=== PATIENT | female | born 1980 | race Caucasian/White ===

== ENCOUNTER 2025-01-15 07:20 | Emergency (ER) | payer OTHER, SELFPAY ==
--- OUTSIDE RECORDS SUMMARY | 2024-12-01 15:40 | XMS_ITS | Encounter Summary ---
Author Organization [employer] Address [address] [place] [address] Care Team Providers Care Environmental Scientist Name Role Phone Tresa Diaz SHEARING SHED HAND, TALENT ACQUISITION PROJECT MANAGER Primary Care Provider + Reason for Visit * Reason Comments Vaginal Problems Encounter Details Date Type Department Care Team (Late st Contact Info) Description 12/01/2024 4:40 PM CDT Office Visit [place] [address] [facility] [address] [place] [address] [place] [address] [place], [place] [phone] Genital herpes simplex, unspecified site (HRC) Social History Tobacco Use Types Packs/Day Years Used Date Smoking Tobacco: Never Passive Smoke Exposure: Never Smokeless Tobacco: Never Alcohol Use Standard Drinks/Week Comments Not Currently 2 (1 standard drink = 0.6 oz pur e alcohol) AUDIT-C Answer Date Recorded Q1: How often do you have a drink containing alc ohol? Never 01/25/2020 Average Number of Drinks Not on file 020 Frequency of Binge Drinking Not on file 01/12 PHQ-2 Answer Date Recorded PHQ-2 Score 1 11/23/2024 Hunger Vital Sign Answer Date Recorded Within the past 12 months, y ou worried that your food would run out before you got the money to buy more. Never true 11/24/19 25 Within the past 12 months, t he food you bought just didn't last and you didn't have money to get more. Never true 11/23/2024 PRAPARE - Transportation Answer Date Re corded In the past 12 months, has l ack of transportation kept you from medical appointments or from getting medications? No 11/12 In the past 12 months, has l ack of transportation kept you from meetings, work, or from getting things needed for daily living? No 11/23/2024 Housing Stability Vital Sign Answer Michael e Recorded In the last 12 months, was t here a time when you were not able to pay the mortgage or rent on time? No 11/23/2024 Number of Times Moved in the Last Year Not on fi le 11/23/2024 At any time in the past 12 m [facility], were you homeless or living in a group home (including now)? No 11/23/2024 Financial Resource Strain Answer Date R ecorded Is it hard for you to pay fo r the very basics like food, housing, medical care or heating? No 07/25/2023 Food Insecurity Answer Date Recorded Does your food run out before you have the money to buy more? No 07/25/2023 Transportation Needs Answer Date Record ed Does a lack of transportatio n keep you from your medical appointments or from getting your medications? No 024 Comments No Sex and Gender Information Value Date Recorded Sex Assigned at Female 01/06/2022 6:21 PM CDT Legal Sex Female 4:56 AM CDT Gender Identity Female 01/06/2022 6:21 PM CDT Sexual Orientation Straight 01/06/2022 6: 21 PM CDT Occupation Industry Job Start Date Job End Date Senior [employer] Not on file Not on file No t on file documented as of this encounter Last Filed Vital Signs Vital Sign Reading Time Taken Comments Blood Pressure 118/75 12/01/2024 4:07 PM CDT Pulse 73 12/01/2024 4:07 PM CDT Temperature 37.1 C (98.8 F) 12/01/2024 4:07 PM CDT Respiratory Rate 16 12/01/2024 4:07 PM CDT Oxygen Saturation 99% 12/01/2024 4:07 PM CDT Inhaled Oxygen Concentration - - Weight - - Height - - Body Mass Index - - documented in this encounter Progress Notes * Sean Fernando MD - 12/01/2024 4:40 PM CDT Patient presents with concerns for for new vaginal lesion. 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 Patient requests an excuse letter for work/school: No Past Medical History[1] Asthma, anxiety, binge eating disorder, ADHD, bipolar disorder, depression, obesity, picky, historypsoriasis. Subject 43 years old female presented today to clinic she stated that is she had herpes gently tell is develop week of November she was treated patient stated that is got better, finish her antiviral medication, lost day she started to have a lot of pain in the vaginal introduces inside that is he think her herpes again flared up 1st herpes attack according to the patient was in November. She deny any fever and chills but she deny have pain and discomfort a lot. Reviewed the system above all other negative Past medical history also reviewed as above Objective BP 118/75 (BP Location: Right Arm, BP Cuff Size: Regular - Long) Pulse 73 Temp 37.1 ??C (98.8 ??F) (Tympanic) Resp 16 LMP 07/10/2023 SpO2 99% Vital signs stable alert oriented she does not seems to be distress she is here with her male partner. HEENT neck lung cardiovascular she deny any problem eye that is she deny problem Concern is genital discussed with the patient option we can not treat her for herpes flare up, we can not check to see if is additional symptom or any other lesion going on she agree. She also complained about shooting pain in her buttock area that is going down the dorsal side of her leg With the help of the nurse just see we did her physical pelvic vaginal exam External when he genital area there is there is no blister, no open skin lesion no lumps between labia majora labia minora again I do not see lesion In the labia minora on the dorsal side of the vaginal area of the vaginal bruises the soft tissue is swollen tender but I do not see ulcer at this time. Assessment Herpes With most likely flare up Plan Medication option discussed with the patient she agree I give him Valtrex cousin mg b.i.d. for 7 days for flare up worse additional symptom concern question back to the clinic otherwise follow-up with the primary doctor and information about herpes genitalis she got it last time. [1] Past Medical History: Diagnosis Date Anxiety (HRC) 11/2001 Asthma (HRC) 10/17/2012 Asthma, exercise induced (HRC) 10/17/2012 Attention deficit disorder (ADD) without hyperactivity 11/30/2016 Binge eating disorder 11/30/2016 Bipolar disorder, unspecified (HRC) Depression 11/2001 LGSIL on Pap smear of cervix Obesity (HRC) BMI technically obese entire life Phi lucio has done therapy for this without improvement Psoriasis documented in this encounter Nursing Notes * Candelaria Tom RN - 12/01/2024 4:40 PM CDT Patient presents with concerns for for new vaginal lesion. 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 Patient requests an excuse letter for work/school: No documented in this encounter Plan of Treatment Not on file documented as of this encounter Visit Diagnoses Diagnosis Genital herpes simplex, unspecified site (HRC) documented in this encounter Care Teams Environmental Scientist Relationship Specialty Start Date End Date Tresa Diaz, NAY, TALENT ACQUISITION PROJECT MANAGER [address] [place] [address] PCP - General Nurse Practitioner 05/18/24 documented as of this encounter
--- OUTSIDE RECORDS SUMMARY | 2024-12-05 07:00 | XMS_ITS | Encounter Summary ---
Author Organization [employer] Address [address] [place] [address] Care Team Providers Care Brazer Production Line Name Role Phone Tresa Diaz YARDAGE CALLER, HIV COUNSELOR Primary Care Provider + Reason for Visit * Reason Comments Dysuria Encounter Details Date Type Department Care Team (Late st Contact Info) Description 12/05/2024 8:00 AM CDT Office Visit [place] [address] [facility] [address] [place] [address] Mick Simental, NAY, HIV COUNSELOR [address] [place], [place] [id number] Dysuria; Urinary tract infection without hematuria, site unspecified Social History Tobacco Use Types Packs/Day Years [...] any time in the past 12 m [facility], were you homeless or living in a penitentiary (including now)? No 11/23/2024 Financial Resource Strain [...] Job Start Date Job End Date Senior [employer] Not on file Not on file No t on file documented as of this encounter Last Filed Vital Signs Vital Sign Reading Time Taken Comments Blood Pressure 109/61 12/05/2024 8:04 AM CDT Pulse 88 12/05/2024 8:04 AM CDT Temperature 36.4 C (97.6 F) 12/05/2024 8:04 AM CDT Respiratory Rate 20 12/05/2024 8:04 AM CDT Oxygen Saturation 100% 12/05/2024 8:04 AM CDT Inhaled Oxygen Concentration - - Weight - - Height - - Body Mass Index - - documented in this encounter Patient Instructions * Attachments The following attachments cannot be sent through Care Everywhere. * UTI (Urinary Tract Infection): Female (Tuvaluan) documented in this encounter Progress Notes * Mick Simental, YARDAGE CALLER, HIV COUNSELOR - 12/05/2024 8:00 AM CDT Patient ID. Vinita Solis Date of : 1980 HPI: The patient is a 43 y.o. female who presents with concern for possible UTI. She developed urgency and burning yesterday. He has using creams for a herpes outbreak. She believes this may have caused aUTI therefore presents today for evaluation. No back pain. No fevers. No vomiting. No other concerns or complaints. Past Medical, Surgical and Social History reviewed on EMR. Medications reviewed on EMR. Allergies: No Known Allergies Review of Systems: All other systems negative unless noted in HPI PHYSICAL EXAM: Blood pressure 109/61, pulse 88, temperature 36.4 ??C (97.6 ??F), temperature source Oral, resp. rate 20, last menstrual period 07/10/2023, SpO2 100%, not currently . General: Alert, No obvious discomfort, well kept Eyes: No scleral icterus or conjunctival injection ENT: Moist mucus membranes, Normal voice Resp: No increased work of breathing, Good air movement CV: Normal rate GI: Abdomen soft and non-distended. Normoactive BS. Mild suprapubic tenderness. No CVA tenderness Skin: Warm, dry. No rashes or petechiae Musculoskeletal: Ambulatory without difficulty, Normal gross ROM Neuro: Alert and oriented to person/place/time, normal sensation Psychiatric: Normal affect, cooperative, good eye contact LABS: Results for orders placed or performed in visit on 12/05/24 Urinalysis Routine, Micro/Culture if Pos: Clean Catch Specimen: Clean Catch; Urine Result Value Ref Range Urine Microscopic Evaluation Reflex Order Comment Urinalysis results meet criteria for reflex, urine microscopic evaluation performed. Color Yellow Clarity Clear Clear Specific [place] 1.020 1.005 - 1.030 pH 6.0 5.0 - 8.0 Protein Trace Neg/Trace mg/dL Glucose Negative Negative mg/dL Ketones Negative Negative mg/dL Urobilinogen 0.2 <2.0 EU/dL Bilirubin Negative Negative Blood Small (A) Neg/Trace Nitrite Positive (A) Negative Leukocyte Esterase Moderate (A) Negative Source Clean Catch Urine Microscopic Evaluation: Clean Catch Specimen: Clean Catch; Urine Result Value Ref Range Urine Culture Comment Urinalysis results meet criteria for reflex, culture performed. Red Blood Cells 0-3 0 - 3 /HPF White Blood Cells 21-50 (A) 0 - 5 /HPF Bacteria Few (A) None Seen /HPF Squamous Epithelial Cells Few None Seen, Occasional, Few /HPF Mucus Present (A) None Seen /HPF White Blood Cell Clumps Present (A) None Seen /HPF IMAGING: No results found. Orders Placed This Encounter Medications QUEtiapine (SEROQUEL) 25 MG tablet Sig: Take by mouth. ASSESSMENT: Patient was seen here for symptoms of dysuria, frequency, and/or urgency. UA consistent with UTI. Patient had no CVA tenderness, no shaking chills, no new sexual partners and has a benign abdominal exam on initial presentation and prior to discharge. Unlikely to represent pyelonephritis or renal stone. Patient was prescribed Keflex and was instructed to return to the Emergency Department for increasing pain, fever, chills, back pain or not being able to keep medication down. Diagnosis and Associated Orders ICD-10-CM 1. Dysuria R30.0 Urinalysis Routine, Micro/Culture if Pos: Clean Catch Urine Microscopic Evaluation: Clean Catch Urine Culture PLAN: New Prescriptions No medications on file Take medications as prescribed and drink plenty of fluids. Follow up with primary care physician in3 - 5 days or sooner if symptoms worsen, may return here or go to the ER if worsening symptoms, fevers, vomiting,abdominal or flank pain or any other concerns. We will send your urine to culture if the bacteria is resistant to the med's we put you on we will call you and change your medications. documented in this encounter Nursing Notes * Riley Lewis, RN - 12/05/2024 8:00 AM CDT Pt states she has herpes in vaginal area and thinks the creams she's been using has caused a uti. C/o urgency and burning with urination since yesterday. Patient requests an excuse letter for work/school: Yes documented in this encounter Plan of Treatment Not on file documented as of this encounter Procedures Procedure Name Priority Date/Time Associated Diagnosis Comments URINE CULTURE STAT 12/05/2024 7:59 AM CDT Dysuria URINALYSIS ROUTINE, MICRO/CULTURE IF POS STAT 12/05/2024 7:59 AM CDT Dysuria UA MICRO STAT 12/05/2024 7:59 AM CDT Dysuria documented in this encounter Results * (ABNORMAL) Urine Culture (12/05/2024 7:59 AM CDT) Urine Culture Growth(A) 12/07/2024 8:38 AM T [facility] Urine Culture 10,000 - 50,000 CFU/mL Escherichia coli 12/07/2024 8:38 AM T [facility] Comment:This is an edited re sult. Previous organism was Gram Negative Bacilli on 12/06/2024 at 0705 CDT. Urine URINE SPECIMEN COLLECTION, CLEAN CATCH / Unknown Non-blood Collection / Unknown 12/05/2024 7:59 AM CDT 12/05/2024 8:24 AM CDT Narrative Organism Antibiotic Method Susceptibility Escherichia coli Ampicillin/Sulbactam >16 mcg/mL: Resistant Escherichia coli Cefazolin >16 mcg/mL: Resistant Escherichia coli Cefazolin (Urine) Resistant Comment:Predicts josr eptibility to most oral cephalosporins for treatment of infections from a urine source. Escherichia coli Ceftriaxone <=1 mcg/mL: Susceptible Escherichia coli Ciprofloxacin <=0.25 mcg/mL: Susceptible Escherichia coli Levofloxacin <=0.5 mcg/mL: Susceptible Escherichia coli Trimethoprim/Sulfamethoxazole <=0.5 mcg/mL: Susceptible Escherichia coli Nitrofurantoin <=16 mcg/mL: Susceptible Escherichia coli Ampicillin >16 mcg/mL: Resistant Escherichia coli Cefoxitin >16 mcg/mL: Resistant Escherichia coli Gentamicin <=2 mcg/mL: Susceptible Escherichia coli Cefotetan Escherichia coli Cefuroxime >16 mcg/mL: Resistant Escherichia coli Minocycline Escherichia coli Amoxicillin/Clavulanic Acid >16 mcg/mL: Resistant Jack Miguel [facility]_1 Final Result [facility] CLIA: [id number] [address] [place] [address], [facility] * (ABNORMAL) Urine Microscopic Evaluation: Clean Catch (12/05/2024 7:59 AM CDT) Urine Culture Comment Urinalysis results meet criteria for reflex, culture performed. 12/05/2024 8:24 AM CDT [facility] Red Blood Cells 0-3 0 - 3 /HPF 12/05/2024 8:24 AM CDT [facility] White Blood Cells 21-50(A) 0 - 5 /HPF 12/05/2024 8:24 AM CDT [facility] Bacteria Few(A) None Seen /HPF 12/05/2024 8:24 AM CDT [facility] Squamous Epithelial Cells Few None Seen, Occasiona l, Few /HPF 12/05/2024 8:24 AM T [facility] Mucus Present(A) None Seen /HPF 12/05/2024 8:24 AM CDT [facility] White Blood Cell Clumps Present(A) None Seen /HPF 12/05/2024 8:24 AM T [facility] Urine URINE SPECIMEN COLLECTION, CLEAN CATCH / Unknown Non-blood Collection / Unknown 12/05/2024 7:59 AM CDT 12/05/2024 8:16 AM CDT Jack Miguel [facility] LAB_1 Final Result [facility] CLIA: [id number] [place] [address], [facility] * (ABNORMAL) Urinalysis Routine, Micro/Culture if Pos: Clean Catch (12/05/2024 7:59 AM CDT) Urine Microscopic Evaluation Reflex Order Comment Urinalysis results meet criteria for reflex, urine microscopic evaluation performed. 12/05/2024 8:24 AM [facility] Color Yellow 12/05/2024 8:24 AM [facility] Clarity Clear Clear 12/05/2024 8:24 AM [facility] Specific [place] 1.020 1.005 - 1.030 12/05/2024 8:24 AM [facility] pH 6.0 5.0 - 8.0 12/05/2024 8:24 AM [facility] Protein Trace Neg/Trace mg/dL 12/05/2024 8:24 AM [facility] Glucose Negative Negative mg/dL 12/05/2024 8:24 AM [facility] Ketones Negative Negative mg/dL 12/05/2024 8:24 AM [facility] Urobilinogen 0.2 <2.0 EU/dL 12/05/2024 8:24 AM [facility] Bilirubin Negative Negative 12/05/2024 8:24 AM [facility] Blood Small(A) Neg/Trace 12/05/2024 8:24 AM [facility] Nitrite Positive(A) Negative 12/05/2024 8:24 AM [facility] Leukocyte Esterase Moderate(A) Negative 12/05/2024 8:24 AM [facility] Source Clean Catch 12/05/2024 8:24 AM [facility] Urine URINE SPECIMEN COLLECTION, CLEAN CATCH / Unknown Non-blood Collection / Unknown 12/05/2024 7:59 AM CDT 12/05/2024 8:16 AM T [facility]_1 Final Result [facility] CLIA: [id number] [place] [address], [facility] documented in this encounter Visit Diagnoses Diagnosis Dysuria Urinary tract infection without hematuria, site unspecified documented in this encounter Care Teams [employer]er Production [employer] Relationship Specialty Start Date End Date Tresa Diaz, YARDAGE CALLER, HIV COUNSELOR [address] [place] [address] PCP - General Nurse Practitioner 05/18/24 documented as of this encounter
--- OUTSIDE RECORDS SUMMARY | 2024-12-26 09:00 | XMS_ITS | Encounter Summary ---
Author Organization [employer] Address [address] [facility] [place] [address] Care Team Providers Care Assembler Tractor Name Role Phone Tresa Diaz GLOVE SEWER, CYLINDER DEVALVER Primary Care Provider + Reason for Visit * Reason Comments Follow-up Encounter Details Date Type Department Care Team (Late st Contact Info) Description 12/26/2024 10:00 AM CDT Office Visit [facility] OB-FILM PRODUCER [address] [address] Lorena Smith MD [address] [place], [place] [phone] HSV (herpes simplex virus) anogenital infection (Primary Dx) Social History Tobacco Use Types Packs/Day Years [...] any time in the past 12 m [facility], were you homeless or living in a senior care (including now)? 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 , here for f/u primary HSV 2. Had terrible HSV 2 symptoms, sacral radiculopathy. Required second round of Valtrex. Ultimately also had an unrelated throat infection, a UTI, yeast vaginitis. Was ill for a month. Now feeling completely better. No pain w/ intercourse. Partner was unaware of his prior hx HSV.Vinita and her partner really talked things through. She reports that her mental health is good. Medications - Previous to this Encounter[1] No Known Allergies OBJECTIVE: Filed Vitals: 12/26/24 1002 BP: 138/78 Pulse: 86 Weight: 162 lb (73.5 kg) Estimated body mass index is 28.25 kg/m?? as calculated from the following: Height as of 05/18/24: 5' 3.5 (1.613 m). Weight as of this encounter: 162 lb (73.5 kg). Alert, normal affect, no distress ASSESSMENT: ICD-10-CM 1. HSV (herpes simplex virus) anogenital infection A60.9 valACYclovir (VALTREX) 1 g tablet PLAN: We reviewed the diagnosis and risk of recurrent outbreaks. We discussed the pros and cons of episodic versus daily suppressive treatment. Given the severity of this primary outbreak, patient elects for daily suppressive therapy with Valtrex 1 g daily. If she does have breakthrough symptoms, she will increase her dosing to 1 g twice daily for 3 days. Plan daily suppressive therapy for 6-12 months then reassess. Patient may follow up with me or with her primary care physician for refills. MDM [1] Outpatient Medications Prior to Visit Medication Sig Dispense Refill budesonide-formoterol (SYMBICORT) 160-4.5 MCG/ACT inhaler Take 1-2 puffs twice a day. May take an additional 1 puff every 4 hours as needed for wheezing or shortness of breath. 1 Each 11 clonazePAM (KLONOPIN) 0.5 MG tablet TAKE 1/2 TABLET BY MOUTH IN THE MORNING PLAS 1/2 TABLET DAILY NEEDED FOR ANXIET/PANIC 30 Tablet 0 dexAMETHasone (DECADRON) 4 MG tablet Two tablets today, one tablet tomorrow, one tablet the following day. (Patient not taking: Reported on 12/26/2024) 4 Tablet 0 escitalopram (LEXAPRO) 10 MG tablet Take 1 Tablet (10 mg) by mouth daily. fluconazole (DIFLUCAN) 150 MG tablet Take 1 tablet by mouth for 1 dose. Repeat after 1 week if needed. (Patient not taking: Reported on 12/26/2024) 2 Tablet 0 lamoTRIgine (LAMICTAL) 200 MG tablet Take 1 Tablet by mouth two times a day. Change to do 90 day rx, this replaces previous Rx (Patient taking differently: Take 1 Tablet (200 mg) by mouth two times aday. Change to do 90 day rx, this replaces previous Rx Doing 1 tab AM, 0.5 tab PM) 180 Tablet 3 lidocaine (XYLOCAINE) 2 % jelly Apply to affected area on perineum 3x/day as needed for pain. Indications: Anesthesia to a Specific Part of the Body (Patient not taking: Reported on 12/26/2024) 30 mL1 lisdexamfetamine (VYVANSE) 30 MG capsule Take 1 Capsule (30 mg) by mouth every morning. QUEtiapine (SEROQUEL) 25 MG tablet Take by mouth. topiramate (TOPAMAX) 100 MG tablet Take 1.5 Tablets by mouth two times a day. 270 Tablet 1 traZODone (DESYREL) 100 MG tablet Take 2 Tablets by mouth daily at bedtime. 180 Tablet 0 No facility-administered medications prior to visit. documented in this encounter Plan of Treatment Not on file documented as of this encounter Visit Diagnoses Diagnosis HSV (herpes simplex virus) anogenital infection- Primary Herpes simplex without mention of complication documented in this encounter Care Teams Assembler Tractor Relationship Specialty Start Date End Date Tresa Diaz, NAY, CYLINDER DEVALVER [address] [place] [address] PCP - General Nurse Practitioner 05/18/24 documented as of this encounter
--- OUTSIDE RECORDS SUMMARY | 2024-12-26 09:30 | XMS_ITS | Encounter Summary ---
Author Organization [facility] Address [address] [place] [address] Care Team Providers Care Pension Administrator Name Role Phone Tresa Diaz APRN, SUPERVISOR COMMUNICATIONS AND SIGNALS Primary Care Provider + Reason for Visit * Reason Comments QUESTIONS, GENERAL Entered automaticall y based on patient selection in ividence. Encounter Details Date Type Department Care Team (Late st Contact Info) Description 12/26/2024 10:30 AM CDT E-Visit [place] [address] [facility] [address] [place] [phone] Tresa Diaz APRN, SUPERVISOR COMMUNICATIONS AND SIGNALS [address] [place] [address] Chief Comp: QUESTIONS, GENERAL Social History Tobacco Use Types Packs/Day Years [...] were you homeless or living in a prison (including now)? 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
--- OUTSIDE RECORDS SUMMARY | 2025-01-03 06:40 | XMS_ITS | Encounter Summary ---
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 Not on file No t on file documented as of this encounter Plan of Treatment Not on file documented as of this encounter Procedures Procedure Name Priority Date/Time Associated Diagnosis Comments LIPID PANEL & DIRECT LDL (IF NEEDED) Routine 01/03/2025 7:47 AM CDT Screening cholesterol level HGB A1C Routine 01/03/2025 7:47 AM CDT Screening for diabetes mellitus documented in this encounter Results * Hgb A1C (01/03/2025 7:47 AM CDT) Hemoglobin A1C 4.2 <=5.6 % 01/03/2025 2:13 PM CDT [facility] Estimated Average Glucose (Calc) 74 < 117 mg/dL 01/03/2025 2:13 PM T [facility] Comment:Estimated average gl ucose (eAG) converts A1c into glucose units (mg/dL) and estimates average glucose over the past approximately 3 months. The eAG reference interval (<117 mg/dL) corresponds to an A1c of <5.7%. Blood Venipuncture / Unknown 01/03/2025 7:47 AM CDT 01/03/2025 7:47 AM CDT Tresa Diaz APRN [employer] LAB_1 Final Re shaniqua [facility] CLIA: [id number] [address] * (ABNORMAL) Lipid Panel & Direct LDL (if Needed) (01/03/2025 7:47 AM CDT) [facility] Cholesterol 208(H) 0 - 199 mg/dL 01/03/2025 10:57 AM [facility] Triglyceride 160(H) <=149 mg/dL 01/03/2025 10:57 AM [facility] HDL Cholesterol 42 >=40 mg/dL 10:57 AM [facility] LDL, Calculated 134(H) <130 mg/dL 10:57 AM [facility] Non HDL Chol, Calculated 166(H) <=159 mg/dL 01/03/2025 10:57 AM [facility] Cholesterol/HDL Ratio 5.0 <=5.0 01/03/2025 10:57 AM [facility] Hours Fasting 1.0 8 - 12 Hours 01/03/2025 10:57 AM [facility] Blood Venipuncture / Unknown 01/03/2025 7:47 AM CDT 01/03/2025 7:47 AM CDT Tresa Diaz APRN, [employer] LAB_1 Final Re sult [facility] CLIA: [id number] [place] [address], [facility] CLIA: [id number] [address] [place] [address] [[email or web address]] documented in this encounter Visit Diagnoses Diagnosis Screening cholesterol level Screening for lipoid disorders Screening for diabetes mellitus documented in this encounter Care Teams Personal Financial Representative Relationship Specialty Start Date End Date Tresa Diaz APRN, [employer] [address] [place], [place] [id number] PCP - General Nurse Practitioner 05/18/24 documented as of this encounter
--- OUTSIDE RECORDS SUMMARY | 2025-01-15 07:22 | XMS_ITS | Clinical Summary ---
Author Organization [facility] Address [address] [place] [address] Care Team Providers Care Marketing Associate Name Role Phone [facility] Pro vider Sybil Merrill MD Unavailable Unavailable Allergies No known active allergies Medications lisdexamfetamine (VYVANSE) 30 MG capsule Take 30 mg by mouth daily Active escitalopram (LEXAPRO) 20 MG tablet Take 30 mg by mouth daily Active norgestrel-ethin yl estradiol (LO/OVRAL) 0.3-30 MG-MCG per tablet Take 1 tablet by mouth daily Active lamoTRIgine (LAMICTAL) 150 MG tablet Take 300 mg by mouth daily Active traZODone (DESYREL) 150 MG tablet Take 150 mg by mouth At Bedtime Active order for DMEIndications:C losed fracture of right ankle, initial encounter Equipment being ordered: Other: Roll about Treatment Diagnosis: Right bimalleolar ankle fracture open reduction and internal fixation Will need for total of 3 months (until June 11, 2019) 1 Units 9 Active senna (SENOKOT) 8.6 MG tabletIndication s:Closed fracture of right ankle, initial encounter Take 1 tablet by mouth daily as needed for constipation 40 tablet 9 Active oxyCODONE (ROXICODONE) 5 MG tabletIndication s:Trimalleolar fracture of right ankle, closed, initial encounter Take 1 tablet (5 mg) by mouth every 6 hours as needed for moderate to severe pain 20 tablet 9 Active senna-docusate (SENOKOT-S/PERIC OLACE) 8.6-50 MG tabletIndication s:Trimalleolar fracture of right ankle, closed, initial encounter Take 1 tablet by mouth 2 times daily as needed for constipation 30 tablet 9 Active lisdexamfetamine (VYVANSE) 30 MG capsule Take 30 mg by mouth every morning. Active traZODone (DESYREL) 100 MG tablet Take 200 mg by mouth at bedtime. Active escitalopram (LEXAPRO) 10 MG tablet Take 10 mg by mouth daily. Active lamoTRIgine (LAMICTAL) 200 MG tablet Take 200 mg by mouth 2 times daily. Active ferrous sulfate (FEROSUL) 325 (65 Fe) MG tablet Take 325 mg by mouth daily (with breakfast). Active clonazePAM (KLONOPIN) 0.5 MG tablet Take 0.25 mg by mouth 2 times daily as needed for anxiety. Active ibuprofen (ADVIL/MOTRIN) 200 MG tabletIndication s:S/P hysterectomy Take 4 tablets (800 mg) by mouth every 6 hours as needed for other (mild and/or inflammatory pain). 5 Active acetaminophen (TYLENOL) 325 MG tabletIndication s:S/P hysterectomy Take 1-2 tablets (325-650 mg) by mouth every 6 hours as needed for mild pain. 5 Active oxyCODONE (ROXICODONE) 5 MG tabletIndication s:S/P hysterectomy Take 1-2 tablets (5-10 mg) by mouth every 4 hours as needed for moderate to severe pain. 12 tablet 5 Active topiramate (TOPAMAX) 100 MG tablet Take 150 mg by mouth 2 times daily. Active fluticasone-salm eterol (ADVAIR) 250-50 MCG/ACT inhaler Inhale 1 puff into the lungs 2 times daily. Active metoclopramide (REGLAN) 10 MG tablet Take 1 tablet (10 mg) by mouth 3 times daily as needed for nausea. 10 tablet 5 Active Active Problems Problem Noted Date Diagnosed Date C. difficile colitis 07/06/2024 Eczema 07/05/2024 Psoriasis 07/05/2024 Severe episode of recurrent major depressive disorder, without psychotic features 07/05/2024 S/P hysterectomy 05/29/2024 Restless legs syndrome 05/18/2024 Overweight (BMI 25.0-29.9) 07/26/2023 Raynaud's phenomenon without gangrene 07/26/2023 Impulse control disorder 07/21/2020 Overview (07/05/2024): shopping Mild persistent asthma without complication 11/13 Closed right ankle fracture 03/10/2019 Trimalleolar fracture of rig ht ankle, closed, initial encounter 03/10/2019 Low grade squamous intraepit helial lesion on cytologic smear of cervix (LGSIL) 11/29/2018 Overview (07/05/2024): CCSM Review: 11/2018: LSIL HPV+ (16 & other) 11/2018: [place] RAMANA 1 01/2020: LSIL HPV+ (other) 03/2020: [place] neg 01/2021: NILM HPV+ (other) 03/2022: NILM, HPV- Plan, per ASCCP guidelines: co-test in 3 years (03/2025) Bipolar 2 disorder 04/07/2018 COTY (generalized anxiety disorder) 05/20/2017 Attention deficit disorder (ADD) without hyperac tivity 11/30/2016 Mild obstructive sleep apnea 11/25/2016 Overview (07/05/2024): Setting: APAP 6-13 cmH20 FFM Supplied by: [facility] PSG done: 10/05/12 Enedina SHAVER AHI 6 (EDS) RDI 20 Lowest O2 Sat: 93% [place] Exercise-induced asthma 09/17/2013 Overview (07/05/2024): AMP - 09/17/13. Previous section 08/28/2013 Indication for care in labor or delivery 014 Labor and delivery indication for care or interv ention 08/17/2013 Indication for care or intervention in labor or delivery 08/07/2013 Carpal tunnel syndrome 04/12/2011 Diffuse cervicobrachial syndrome 04/12/2011 Tension headache 04/12/2011 MTHFR mutation 01/23/2011 Overview (07/05/2024): Carrier Attention deficit hyperactivity disorder (ADHD) 10/01/2010 Seasonal allergies 08/03/2010 Major depressive disorder, r ecurrent episode, in full remission 07/21/2010 Insomnia 06/25/2010 Mild major depression 06/03/2010 Contraception 06/03/2010 Anxiety 06/03/2010 Family history of diabetes mellitus 06/03/2010 Hyperlipidemia LDL goal <160 06/03/2010 Immunizations Immunization Administration Dates Next Due Influenza (IIV3) PF 11/19/2009 TD,PF 7+ (Tenivac) 12/12/2008 Family History Medical History Relation Comments Family History Negative Brother 1 Diabetes Father Type II Blood Disease Mother blood clots duri ng Family History Negative Sister 2 Breast Cancer No family hx of Relation Status Comments Brother Father Alive Mother Alive Sister Social History Tobacco Use Types Packs/Day Years Used Date Smoking Tobacco: Never Smokeless Tobacco: Never Tobacco Cessation:Counseling Given: Not Answered Alcohol Use Standard Drinks/Week Comments Yes 0 (1 standard drink = 0.6 oz pur e alcohol) weekly Adolescent Education Answer Date Record ed Getting School Help Needed Not on file 12/29 Food Insecurity Answer Date Recorded Within the past 12 months, d id you worry that your food would run out before you got money to buy more? No 05/29/2024 Within the past 12 months, d id the food you bought just not last and you didn t have money to get more? No 05/29/2024 Housing Stability Answer Date Recorded Do you have housing? (Eliin g is defined as stable permanent housing and does not include staying outside in a car, in a tent, in an abandoned building, in an overnight prison, or couch-surfing.) Yes 05/29/2024 Are you worried about losing your housing? No 05/29/2024 Financial Resource Strain Answer Date R ecorded Within the past 12 months, h ave you or your family members you live with been unable to get utilities (heat, electricity) when it was really needed? No 05/29/2024 Transportation Needs Answer Date Record ed Within the past 12 months, h as lack of transportation kept you from medical appointments, getting your medicines, non-medical meetings or appointments, work, or from getting things that you need? No 05/29/2024 Interpersonal Safety Answer Date Record ed Do you feel physically and e motionally safe where you currently live? Yes 05/29/2024 Within the past 12 months, h ave you been hit, slapped, kicked or otherwise physically hurt by someone? No 05/29/2024 Within the past 12 months, h ave you been humiliated or emotionally abused in other ways by your partner or ex-partner? 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 Gender Identity Not on file Sexual Orientation Not on file Last Filed Vital Signs Vital Sign Reading Time Taken Comments Blood Pressure 105/78 07/05/2024 6:26 PM CDT Pulse 97 07/05/2024 6:26 PM CDT Temperature 37.1 C (98.8 F) 07/05/2024 8:56 PM CDT Respiratory Rate 18 07/05/2024 6:26 PM CDT Oxygen Saturation 98% 07/05/2024 6:26 PM CDT Inhaled Oxygen Concentration - - Weight 73.1 kg (161 lb 2.5 oz) 07/05/2024 6:26 P M CDT Height 161.3 cm (5' 3.5) 05/29/2024 4:33 PM CDT Body Mass Index 28.1 05/29/2024 4:33 PM CDT Plan of Treatment Health Maintenance Due Date Last Done Comments ADVANCE CARE PLANNING 1981 ANNUAL REVIEW OF HM ORDERS 1981 ASTHMA ACTION PLAN 1981 ASTHMA CONTROL TEST 1981 LIPID 1981 HEPATITIS B VACCINE (2 of 2 - CpG 2-dose series) 06/15/2024 05/18/2024 YEARLY PREVENTIVE VISIT 07/25/2024 07/26/19, 04/06/2022, 01/25/2020, Additional history exists COVID-19 VACCINE ( season) 2024 12/23/2023, 01/31/2023, 02/15/2022, Additional history exists INFLUENZA VACCINE (#1) 2024 , 01/31/2023, 11/10/2021, Additional history exists PAP 04/06/2025 04/06/2022, 090 08/2018, 11/17/2018, Additional history exists MAMMO SCREENING 11/09/2025 11/10/2023, 10/13, 04/06/2022, Additional history exists DIABETES SCREENING 07/06/2027 07/05/2024, 1 , 03/10/2019, Additional history exists ZOSTER VACCINE (1 of 2) 12/10/2031 DTAP/TDAP/TD VACCINE (5 - Td or Tdap) 07/25/2033 07/26/2023, 06/14/2013, 04/28/2013, Additional history exists HEPATITIS C SCREENING Completed 07/29/2017 HIV SCREENING Completed 07/29/2017, 01/19/2013 HPV VACCINE Completed 04/06/2022, 01/12, 04/03/2020 PNEUMOCOCCAL VACCINE: PEDIATRICS (0 to 5 YEARS) AND AT-RISK PATIENTS (6 to 49 YEARS) Completed 07/26/2023, 01/04/2017 MENINGITIS VACCINE Aged Out No longer eligible based on patient's age to complete this topic Medical Devices Implanted Type Area Contracting Executive Device Identifier Shelf Expiration Date Model / Serial / Lot 2.7mm Cortex Screw, Self-Tapping, 18mm Implanted:Qty: 1 on 03/12/2019 by Maykel Bradford MD at [facility] Right: Ankle SYNTHES 202.818 / / [id number] 4.0 Cannulated Screw, Long Thread, 52mm Implanted:Qty: 1 on 03/12/2019 by Maykel Bradford MD at [facility] Right: Ankle SYNTHES 207.752 / / [id number] 1.25mm Threaded Guide Wire, 150mm Length Implanted:Qty: 2 on 03/12/2019 by Maykel Bradford MD at [facility] Right: Ankle SYNTHES 900.722 / / [id number] 2.7mm Cannulated Drill Bit, Quick Coupling, 160mm Length Implanted:Qty: 1 on 03/12/2019 by Maykel Bradford MD at [facility] Right: Ankle SYNTHES 310.67 / / 800 [id number] One-Third Tubular Lcp Plates, With Collar, 8 Hole Implanted:Qty: 1 on 03/12/2019 by Maykel Brdaford MD at [facility] Right: Ankle SYNTHES 241.381 / / [id number] 2.0mm X 125mm Drill Bit Implanted:Qty: 1 on 03/12/2019 by Maykel Bradford MD at [facility] Right: Ankle SYNTHES 310.21 / / [id number] 2.5mm X 110mm Gold Drill Bit Implanted:Qty: 1 on 03/12/2019 by Maykel Bradford MD at [facility] Right: Ankle SYNTHES 310.25 / / [id number] 2.7mm X 125mm Drill Bit Implanted:Qty: 1 on 03/12/2019 by Maykel Bradford MD at [facility] Right: Ankle SYNTHES 315.28 / / [id number] 3.5mm Cortex Screw, Self-Tapping, 12mm Implanted:Qty: 2 on 03/12/2019 by Maykel Bradford MD at [facility] Right: Ankle SYNTHES 204.812 / / [id number] 4.0mm Cancellous Bone Screw, Fully Threaded, 16mm Implanted:Qty: 1 on 03/12/2019 by Maykel Bradford MD at [facility] Right: Ankle SYNTHES 206.016 / / [id number] 4.0mm Cancellous Bone Screw, Fully Threaded, 18mm Implanted:Qty: 1 on 03/12/2019 by Maykel Bradford MD at [facility] Right: Ankle SYNTHES 206.018 / / [id number] 4.0mm Cannulated Screw, Long Thread, 54mm Implanted:Qty: 1 on 03/12/2019 by Maykel Bradford MD at [facility] Right: Ankle SYNTHES 207.754 / / [id number] Procedures Procedure Name Priority Date/Time Associated Diagnosis Comments COMPREHENSIVE METABOLIC PANEL STAT 07/05/2024 6:45 PM CDT HIV 1 AND 2 ANTIBODY ([facility]) Routine 01/19/2013 PAP IMAGED THIN LAYER SCREEN Routine 01/12/2010 from Last 3 Months or Most Recently Relevant to Health Maintenance Results * (ABNORMAL) Comprehensive metabolic panel (07/05/2024 6:45 PM CDT) Sodium 140 135 - 145 mmol/L 07/05/2024 7:19 PM CDT [facility] Potassium 3.4 3.4 - 5.3 mmol/L 07/05/2024 7:19 PM CDT [facility] Carbon Dioxide (CO2) 20(L) 22 - 29 mmol/L 07/05/2024 7:19 PM CDT [facility] Anion Gap 12 7 - 15 mmol/L 07/05/2024 7:19 PM CDT [facility] Urea Nitrogen 12.8 6.0 - 20.0 mg/dL 07/05/2024 7:19 PM CDT [facility] Creatinine 0.91 0.51 - 0.95 mg/dL 07/05/2024 7:19 PM CDT [facility] GFR Estimate 80 >60 mL/min/1.7 3m2 07/05/2024 7:19 PM CDT [facility] Comment:eGFR calculated us2020 CKD-EPI equation. Calcium 9.0 8.8 - 10.4 mg/dL 07/05/2024 7:19 PM CDT [facility] Chloride 108(H) 98 - 107 mmol/L 07/05/2024 7:19 PM CDT [facility] Glucose 134(H) 70 - 99 mg/dL 07/05/2024 7:19 PM CDT [facility] Alkaline Phosphatase 112 40 - 150 U/L 07/05/2024 7:19 PM CDT [facility] AST 63(H) 0 - 45 U/L 07/05/2024 7:19 PM CDT [facility] ALT 67(H) 0 - 50 U/L 07/05/2024 7:19 PM CDT [facility] Protein Total 7.0 6.4 - 8.3 g/dL 07/05/2024 7:19 PM CDT [facility] Albumin 4.3 3.5 - 5.2 g/dL 07/05/2024 7:19 PM CDT [facility] Bilirubin Total 0.5 <=1.2 mg/dL 07/05/2024 7:19 PM CDT [facility] Blood STRUCTURE OF LEFT UPPER LIMB / Unknown Venipuncture / Unknown 07/05/2024 6:45 PM CDT 07/05/2024 6:54 PM CDT us Dany Sanders MD LAB - BLOOD ORDERABLES Final Result LABORATORY [facility] [address] Lab (1st floor, no room number) [place] [address] * HIV 1 and 2 Antibody ([facility]) (01/19/2013) HIV 1&2 Antibody Negative Blood specimen (specimen) us Patient Reported LAB - BLOOD ORDERABLES Final Re sult * PAP imaged thin layer screen (01/12/2010) PAP Date 01/12/2010 [facility] Comment:histrorical PAP nil [facility] Cytologic material (specimen) us [facility] - OPTIME CLINICAL SPECIMEN Final Result [facility] from Last 3 Months or Most Recently Relevant to Health Maintenance Insurance [employer] Member Subscriber Plan / Payer (Ef fective 2024-Present) Name:Vinita Solis Relation to Subscriber:Self Name:Vinita Solis Payer ID:[id number] (NAIC) Type:HMO Address: [place] [id number] Subscriber Plan / Payer (Ef fective 2024-) Name:Vinita Solis Relation to Subscriber:Self Name:Vinita Solis Payer ID:[id number] (NAIC) Type:[employer] Address: [place] [phone] Subscriber Plan / Payer (Ef fective 2024-Present) Name:Vinita Solis Relation to Subscriber:Self Name:Vinita Solis Payer ID:[id number] (NAIC) Type:HMO Address: [place] [phone] Advance Directives For more information, please contact: [phone] * Full Code (Latest Code Status on File) Date Activated Date Inactivated Comments 05/29/2024 4:15 PM 05/30/2024 2:38 PM All basic an d advanced life-sustaining interventions are performed as appropriate Question Answer Comments Code status determined by: Discussion with patie nt/ legal decision maker * Full Code Date Activated Date Inactivated Comments 03/10/2019 7:06 PM 03/13/2019 4:22 PM Question Answer Comments Code status determined by: Discussion with patie nt/legal decision maker Care Teams Marketing Associate Relationship Specialty Start Date End Date [facility], [facility] [id number] [place] [id number] PCP - General 05/29/24 [place] [address] [place] [address] Family Practice 05/09/24
--- OUTSIDE RECORDS SUMMARY | 2025-01-15 07:22 | XMS_ITS | Encounter Summary ---
Author Organization [facility] Address [address] [place] [address] Care Team Providers Care Energy Engineer Name Role Phone Tresa Diaz APRN, SUPERVISOR SPINNING Primary Care Provider + Reason for Visit * Reason Comments HERPES Encounter Details Date Type Department Care Team (Late st Contact Info) Description 12/01/2024 Nurse Triage [facility] [address] [place] [address] Tresa Diaz APRN, SUPERVISOR SPINNING [address] [place] [address] HERPES Social History Tobacco Use Types Packs/Day Years [...] any time in the past 12 m onths, were you homeless or living in a chcf (including now)? 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 She finished the course ofantiviral but today noticed new blisters. The blisters are intact but red around. The previous sores have healed per patient. She also reports a low grade fever 99.6. Rates her pain 4/10 with moderate itching. Patient agrees to Care Advice. Patient denies severe pain, genital area looking infected. Reviewed pertinent medical history (as relates to the call): Yes Reviewed pertinent medications (as relates to the call): Yes Reason for Disposition Rash with painful tiny water blisters Protocols used: Vulvar [id number] documented in this encounter Plan of Treatment Not on file documented as of this encounter Visit Diagnoses Not on filedocumented in this encounter Care Teams Energy Engineer Relationship Specialty Start Date End Date Tresa Diaz, LOADER SEMICONDUCTOR DIES, SUPERVISOR SPINNING [address] [place] [address] PCP - General Nurse Practitioner 05/18/24 documented as of this encounter
--- OUTSIDE RECORDS SUMMARY | 2025-01-15 07:22 | XMS_ITS | Clinical Summary ---
Author Organization [facility] Address [address] [place] [address] Care Team Providers Care Plastic And Reconstructive Surgeon Name Role Phone Tresa Diaz COMMERCIAL STRIPPER, COMMUNITY HEALTH DIRECTOR Primary Care Provider + Source Comments You are receiving this document as you are listed as the primary care provider,follow-up provider, or the patient has been referred to you for consultation.This is in compliance with the Medicare and[facility] EHR Incentive Program,which states Providers who transition their patient to another setting of careor provider of care or refers their patient to another provider of care shouldprovide summary care record for each transition of care or referral. [facility] Allergies No known active allergies Medications lamoTRIgine (LAMICTAL) 200 MG tablet Take 1 Tablet by mouth two times a day. Change to do 90 day rx, this replaces previous Rx 180 Tablet 3 1 Active Additional Information Patient taking differently:200 mg Oral BID, Change to do 90 day rx, this replaces previous RxDoing 1 tab AM, 0.5 tab PM, Reported on 12/26/2024 topiramate (TOPAMAX) 100 MG tablet Take 1.5 Tablets by mouth two times a day. 270 Tablet 1 Active clonazePAM (KLONOPIN) 0.5 MG tablet TAKE 1/2 TABLET BY MOUTH IN THE MORNING PLAS 1/2 TABLET DAILY NEEDED FOR ANXIET/PANIC 30 Tablet 1 Active traZODone (DESYREL) 100 MG tablet Take 2 Tablets by mouth daily at bedtime. 180 Tablet 1 Active escitalopram (LEXAPRO) 10 MG tablet Take 1 Tablet (10 mg) by mouth daily. Active lisdexamfetamine (VYVANSE) 30 MG capsule Take 1 Capsule (30 mg) by mouth every morning. Active lidocaine (XYLOCAINE) 2 % jellyIndications :Local Anesthesia Apply to affected area on perineum 3x/day as needed for pain. Indications: Anesthesia to a Specific Part of the Body 30 mL 1 5 Active Additional Information Patient not taking.Reported on 12/26/2024 dexAMETHasone (DECADRON) 4 MG tablet Two tablets today, one tablet tomorrow, one tablet the following day. 4 Tablet 5 Active Additional Information Patient not taking.Reported on 12/26/2024 fluconazole (DIFLUCAN) 150 MG tabletIndication s:Yeast infection Take 1 tablet by mouth for 1 dose. Repeat after 1 week if needed. 2 Tablet 5 Active Additional Information Patient not taking.Reported on 12/26/2024 budesonide-formo terol (SYMBICORT) 160-4.5 MCG/ACT inhalerIndicatio ns:Mild persistent asthma without complication (HRC) Take 1-2 puffs twice a day. May take an additional 1 puff every 4 hours as needed for wheezing or shortness of breath. 1 Each 11 5 Active QUEtiapine (SEROQUEL) 25 MG tablet Take by mouth. 5 Active valACYclovir (VALTREX) 1 g tabletIndication s:HSV (herpes simplex virus) anogenital infection Take 1 Tablet (1,000 mg) by mouth daily. 90 Tablet 3 5 Active Active Problems Problem Noted Date Diagnosed Date History of PCR DNA positive for HSV2 11/15/2024 Overview (11/15/2024): 11/2024 Restless legs syndrome 05/18/2024 Psychophysiologic insomnia 05/18/2024 Sleep disorder, unspecified 05/18/2024 Overweight (BMI 25.0-29.9) 07/26/2023 Impulse control disorder 07/21/2020 Overview (07/21/2020): shopping Mild persistent asthma without complication 11/13 Low grade squamous intraepit helial lesion on cytologic smear of cervix (LGSIL) 11/29/2018 Overview (05/05/2022): CCSM Review: 11/2018: LSIL HPV+ (16 & other) 11/2018: [place] RAMANA 1 01/2020: LSIL HPV+ (other) 03/2020: [place] neg 01/2021: NILM HPV+ (other) 03/2022: NILM, HPV- Plan, per ASCCP guidelines: co-test in 3 years (03/2025) Bipolar 2 disorder 04/07/2018 COTY (generalized anxiety disorder) 05/20/2017 Attention deficit disorder (ADD) without hyperac tivity 11/30/2016 Mild obstructive sleep apnea 11/25/2016 Overview (04/15/2023): Setting: APAP 6-13 cmH20 FFM Supplied by: [employer] PSG done: 10/05/12 [place] AHI 6 (EDS) RDI 20 Lowest O2 Sat: 93% [place] Controlled substance agreement signed 01/20/2015 Overview (12/14/2016): Diagnosis: ADD Medication: Vyvanse Controlled Substance Agreement reviewed and signed: yes Date agreement signed: 01/20/2015 , med change 11/30/16 Refill plan: Pt is to be seen in clinic every 6 months Clinician: Una Marshall PA-C, Sybil Merrill MD MTHFR mutation 01/23/2011 Overview (07/26/2023): Overview: Carrier Major depressive disorder, r ecurrent episode, in full remission 07/21/2010 Resolved Problems Problem Noted Date Diagnosed Date Resolved Date Raynaud's phenomenon without gangrene 07/26/2023 09/11/2024 Assessment & Plan (07/26/2023 3:55 PM CDT): - Discussed medication trial to see if symptoms improve for cold, discolored hands. Pt does not need to continue medication, more to see if diagnosis is correct. Mild persistent asthma with acute exacerbation 02/15/2022 07/26/2023 Assessment & Plan (02/15/2022 12:15 PM DIRECTOR OF REAL ESTATE): - Improving from last time, has been on advair for 1 month and had recurrent thrush. Will treat with diflucan. Will continue advair for now and put in order for Covid PT program. Okay to get covid booster today as has been over a month since infection. Continue albuterol. Major depressive disorder, r ecurrent, moderate 05/20/2017 04/07/2018 Overview (06/23/2017): Partial hospitalization [facility] 05/30/17 De Quervain's tenosynovitis 03/24/2017 07/26/2023 Overview (03/24/2017): right Obesity, Class I, BMI 30-34.9 11/25/2016 07/26/[address] 10/07/2016 7 Overview (10/07/2016): Nexplanon: Lot [id number], Exp 10/2018 To remove or replace by 10/08/2019 Anxiety and depression 07/11/201405/20 Other specified eating disorder 07/26/2023 Overview (07/26/2023): This problem was marked as resolved by a user in a SmartForm. Psoriasis 07/26/2023 Overview (07/26/2023): This problem was marked as resolved by a user in a SmartForm. Encounters Date Type Department Care Team Description 01/03/2025 7:40 AM CDT Lab Visit [address] [phone] Screening cholesterol level; Screening for diabetes mellitus 12/26/2024 10:30 AM CDT E-Visit [facility] [address] [facility] [address] [place] [phone] Tresa Diaz APRN, COMMUNITY HEALTH DIRECTOR Chief Comp: QUESTIONS, GENERAL 12/26/2024 10:00 AM CDT Office Visit [facility] [place] [address] [place] [address] Lroena Smith MD HSV (herpes simplex virus) anogenital infection (Primary Dx) 12/07/2024 Results Follow-Up [facility] [facility] [address] [place] [phone] Siva Hernandez, DWIGHT 12/05/2024 8:00 AM CDT Office Visit [facility] [facility] [address] [place] [phone] Mick Simental APRN, COMMUNITY HEALTH DIRECTOR Dysuria; Urinary tract infection without hematuria, site unspecified 12/01/2024 4:40 PM CDT Office Visit [facility] [address] [place] [phone] Sean Fernando MD Genital herpes simplex, unspecified site (HRC) 12/01/2024 Nurse Triage [facility] Nurse Line [address] [place] [address] Tresa Diaz APRN, COMMUNITY HEALTH DIRECTOR HERPES 11/28/2024 [facility] [address] [place] [place] [address] Lorena Smith MD Vaginal Discharge 11/27/2024 8:30 AM CDT E-Visit [facility] [address] [facility] [address] [place] [phone] Tresa Diaz APRN, COMMUNITY HEALTH DIRECTOR Chief Comp: Follow-up, NOS 11/23/2024 11:20 AM CDT Lab Visit [address] [phone] Fatigue, unspecified type 11/23/2024 10:30 AM CDT Office Visit [facility] [id number] [place] [phone] Tresa Diaz, COMMERCIAL STRIPPER, COMMUNITY HEALTH DIRECTOR Well woman exam (no gynecological exam) (Primary Dx); Mild persistent asthma without complication (HRC); Fatigue, unspecified type; Yeast infection; Encounter for screening mammogram for malignant neoplasm of breast; Screening for diabetes mellitus; Screening cholesterol level 11/17/2024 12:40 PM CDT Office Visit [facility] [address] [facility] [address] [place] [phone] Cristo Valdez MD Exudative tonsillitis 11/15/2024 6:10 PM CDT E-Visit [facility] OB-HELMET BINDER [address] [address] Lorena Smith MD Chief Comp: RESULTS, TEST 11/15/2024 Results Follow-Up [facility] OB-HELMET BINDER [address] [address] Lorena Smith MD 11/14/2024 1:10 PM CDT Lab Visit [facility] [address] [address] Dysuria 11/14/2024 11:15 AM CDT Office Visit [facility] OB-HELMET BINDER [address] [address] Lorena Smith MD Vaginal symptom (Primary Dx); Dysuria; Vaginal burning; Vaginal lesion 11/14/2024 Nurse Triage [facility]-SENIOR PROGRAMMER [address] [facility], [address] [place] [phone] Nora Arce MD Vaginal Pain 11/01/2024 Results Follow-Up [facility] [address] [facility] [address] [place] [phone] Tanya Izquierdo MD 10/31/2024 9:20 AM CDT Office Visit [facility] [address] [facility] [address] [place] [phone] Tanya Izquierdo MD Dysuria; Acute cystitis with hematuria from Last 3 Months Immunizations Immunization Administration Dates Next Due 9vHPV (Gardasil 9) 04/06/2022,01/30/2021, 021 Chicken Pox - History of Illness 1982 Flu Vac Preserv Free (3+yrs) 12/16/2013,11/30/19 13 Fluzone Qiv Multidose Vial 0 .25 (6-35 Mos) 11/06/2015 HepB Adult (Heplisav-B, 19+ yrs, 2 dose series) 11/23/2024,05/18/2024 Influenza (Flucelvax), Prese rv Free QIV 11/10/2021 Influenza IIV4 (Quadrivalent ) 0.5mL (33933) 01/31/2023,11/16/2020,11/09/2019,2018,10/26/2017,11/06/2015,12/16/2013 Influenza ccIIV3 6 months+ (Flucelvax) 11/23/2024 Influenza, Unspecified Formulation 12/22,11/11/2016,11/13/2015,2014 Moderna COVID-19 12+ (Spikevax) 01/31/2023 Moderna Monovalent 12+ 01/21/2021 PCV20 ([id number]) 07/26/2023 PPSV23 (Pneumovax) 01/04/2017 Pfizer Bivalent 12+ 12/23/2023,02/15/2022 Pfizer Monovalent 12+ Purple Top 06/24/2020,05/13 TDAP (ADACEL) 06/14/2013 TDAP (BOOSTRIX) 12/29/2008 Tdap 07/26/2023,04/28/2013 Family History Medical History Relation Name Comments Depression Father Pan Diabetes Father Pan Diabetes, Type II Father Pan Insulin re quiring Hypertension Father Pan DVT/PE Mother Scottie after High Cholesterol Mother Scottie High Trigly cerides elevated triglycerides Mother Scottie Anxiety Brother Juarez Depression Brother Juarez High Cholesterol Brother Juarez High Trigly cerides Hypertension Brother Juarez Sleep apnea Brother Juarez Snoring Brother Juarez Due to sleep ap león finally diagnosed Depression Cousin Depression Daughter Allie Cancer, Pancreatic Maternal Aunt Cancer, Skin Maternal Grandfather Reza Depression Maternal Grandfather Reza High Cholesterol Maternal Grandmother Jr Hig h Triglycerides elevated triglycerides Maternal Grandmother Jr Cancer, Breast Paternal Aunt 1 Cancer, Ovary Paternal Aunt 2 Alcohol Abuse Paternal Aunt 3 Vidya Depression Paternal Aunt 3 Vidya Heart Disease Paternal Grandfather Les Depression Paternal Grandmother Constance Obesity Paternal Grandmother Constance Binge Eating Disorder Sister 1 Shara Bipolar Disorder Sister 1 Shara Depression Sister 1 Shara Anxiety Sister 2 ADHD Son Eric Anxiety Son Eric Autism Son Eric Anesthesia Reaction Negative Family History Relation Name Status Comments Father Pan Alive Mother Scottie Alive Brother Juarez Alive Cousin Daughter Allie Alive Maternal Aunt Alive Maternal Grandfather Reza Maternal Grandmother Jr Paternal Aunt 1 Alive Paternal Aunt 2 Alive Paternal Aunt 3 Constance Zeng Paternal Grandfather Les Paternal Grandmother Constance Sister 1 Shara Alive Sister 2 Son Eric Alive Social History Tobacco Use Types Packs/Day Years Used Date Smoking Tobacco: Never Passive Smoke Exposure: Never Smokeless Tobacco: Never Tobacco Cessation:Counseling Given: Not Answered Alcohol Use Standard Drinks/Week Comments Not Currently [...] 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 on file Not on file No t on file Last Filed Vital Signs Vital Sign Reading Time Taken Comments Blood Pressure 138/78 12/26/2024 10:02 AM CDT Pulse 86 12/26/2024 10:02 AM CDT Temperature 36.4 C (97.6 F) 12/05/2024 8:04 AM CDT Respiratory Rate 20 12/05/2024 8:04 AM CDT Oxygen Saturation 100% 12/05/2024 8:04 AM CDT Inhaled Oxygen Concentration - - Weight 73.5 kg (162 lb) 12/26/2024 10:02 AM CDT Height 161.3 cm (5' 3.5) 05/18/2024 8:26 AM DIRECTOR OF REAL ESTATE Body Mass Index 28.25 05/18/2024 8:26 AM DIRECTOR OF REAL ESTATE Plan of Treatment Health Maintenance Due Date Last Done Comments Mammogram 11/09/2024 11/10/2023, 03/15, 11/20/2018 COVID-19 Vaccine ( season) 2024 12/23/2023, 01/31/2023, 02/15/2022, Additional history exists Asthma ACT (score of 20 or higher) 05/31/2025 05/31/2024, 07/26/2023, 12/23/2022, Additional history exists Adult Preventive Visit 11/23/2026 , 07/26/2023, 04/06/2022, Additional history exists Diabetes Screening- (based on age and BMI) 01/04/2028 01/03/2025, 07/26/2023, 08/14/2022, Additional history exists Zoster/Shingles Vaccine (1 of 2) 12/10/2031 DTaP/Tdap/Td Vaccine (5 - Tdap) 07/25/2033 07/26/2023, 06/14/2013, 04/28/2013, Additional history exists HIV Screening (Preventive Services) Completed 07/29/2017 Hep C Screening (Preventive Services) Completed 07/29/2017 Cervical Cancer Screening Discontinued 2022, 04/06/2022, 01/30/2021, Additional history exists HPV Vaccine Completed 04/06/2022, 01/12, 04/03/2020 Pneumococcal Vaccine Completed 07/26/2023, 01/05/20 17 HepB Vaccine Completed 11/23/2024, 05/18/2024 Influenza Vaccine Completed 11/23/2024, , 01/31/2023, Additional history exists HepA Vaccine Aged Out No longer eligi ble based on patient's age to complete this topic Hib Vaccine Aged Out No longer eligi ble based on patient's age to complete this topic IPV (Polio) Vaccine Aged Out No longe r eligible based on patient's age to complete this topic MCV4 Vaccine Aged Out No longer eligi ble based on patient's age to complete this topic Meningococcal B Vaccine Aged Out No l onger eligible based on patient's age to complete this topic Procedures Procedure Name Priority Date/Time Associated Diagnosis Comments HGB A1C Routine 01/03/2025 7:47 AM CDT Screening for diabetes mellitus LIPID PANEL & DIRECT LDL (IF NEEDED) Routine 01/03/2025 7:47 AM CDT Screening cholesterol level URINE CULTURE STAT 12/05/2024 7:59 AM CDT Dysuria UA MICRO STAT 12/05/2024 7:59 AM CDT Dysuria URINALYSIS ROUTINE, MICRO/CULTURE IF POS STAT 12/05/2024 7:59 AM CDT Dysuria MONO TEST Routine 11/23/2024 11:16 AM CDT Fatigue, unspecified type STREP GROUP A, MOLECULAR DETECTION STAT 11/17/2024 12:55 PM CDT Exudative tonsillitis HERPES 1/2 BY MOLECULAR DETECTION (INHOUSE) Routine 11/14/2024 12:00 PM CDT Vaginal burning CHLAMYDIA & GC (14 YEARS & OLDER) Routine 11/14/2024 12:00 PM CDT Vaginal burning VAGINITIS PANEL Routine 11/14/2024 12:00 PM CDT Vaginal burning URINALYSIS ROUTINE, MICRO/CULTURE IF POS Routine 11/14/2024 12:00 PM CDT Dysuria URINE CULTURE STAT 10/31/2024 8:54 AM CDT Dysuria UA MICRO STAT 10/31/2024 8:54 AM CDT Dysuria URINALYSIS ROUTINE, MICRO/CULTURE IF POS STAT 10/31/2024 8:54 AM CDT Dysuria MM MAMMOGRAM SCREENING BILAT W 3D CALVIN W CAD Routine 11/10/2023 8:20 AM CDT CYTOLOGY (PAP) Routine 04/06/2022 2:41 PM DIRECTOR OF REAL ESTATE Screening for malignant neoplasm of cervix HIV 1/2 AG/AB 4TH GEN Routine 07/29/2017 8:26 AM CDT Screen for STD (sexually transmitted disease) HEPATITIS C ANTIBODY, WITH REFLEX (ANTI-HCV) Routine 07/29/2017 8:26 AM CDT Screen for STD (sexually transmitted disease) from Last 3 Months or Most Recently Relevant to Health Maintenance Results * (ABNORMAL) Lipid Panel & Direct LDL (if Needed) (01/03/2025 7:47 AM CDT) Cholesterol 208(H) 0 - 199 mg/dL 01/03/2025 10:57 AM CDT [facility] Triglyceride 160(H) <=149 mg/dL 01/03/2025 10:57 AM CDT [facility] HDL Cholesterol 42 >=40 mg/dL 10:57 AM CDT [facility] LDL, Calculated 134(H) <130 mg/dL 10:57 AM CDT [facility] Non HDL Chol, Calculated 166(H) <=159 mg/dL 01/03/2025 10:57 AM T [facility] Cholesterol/HDL Ratio 5.0 <=5.0 01/03/2025 10:57 AM T [facility] Hours Fasting 1.0 8 - 12 Hours 01/03/2025 10:57 AM CDT [facility] Blood Venipuncture / Unknown 01/03/2025 7:47 AM CDT 01/03/2025 7:47 AM CDT us Tresa Diaz COMMERCIAL STRIPPER, COMMUNITY HEALTH DIRECTOR LAB_1 Final Re sult [facility] CLIA: [id number] [address] [place] [address], [facility] CLIA: [id number] [address] [place] [address] * Hgb A1C (01/03/2025 7:47 AM CDT) Hemoglobin A1C 4.2 <=5.6 % 01/03/2025 2:13 PM CDT [facility] Estimated Average Glucose (Calc) 74 < 117 mg/dL 01/03/2025 2:13 PM CDT [facility] Comment:Estimated average gl ucose (eAG) converts A1c into glucose units (mg/dL) and estimates average glucose over the past approximately 3 months. The eAG reference interval (<117 mg/dL) corresponds to an A1c of <5.7%. Blood Venipuncture / Unknown 01/03/2025 7:47 AM CDT 01/03/2025 7:47 AM CDT us Tresa Diaz COMMERCIAL STRIPPER, COMMUNITY HEALTH DIRECTOR LAB_1 Final Re sult [facility] CLIA: [id number] [address] * (ABNORMAL) Urine Culture (12/05/2024 7:59 AM CDT) Only the most recent of2 resultswithin the time period is included. [facility] Signature Urine Culture Growth(A) 12/07/2024 8:38 AM T [facility] Urine Culture 10,000 - 50,000 CFU/mL Escherichia coli 12/07/2024 8:38 AM T [facility] Comment:This is an edited re sult. [...] Escherichia coli Amoxicillin/Clavulanic Acid >16 mcg/mL: Resistant us Jack Gonzalez Myriam [facility] LAB_1 Final Result [facility] CLIA: [id number] [address] [place] [address] * (ABNORMAL) Urinalysis Routine, Micro/Culture if Pos: Clean Catch (12/05/2024 7:59 AM CDT) Only the most recent of3 resultswithin the time period is included. Urine Microscopic Evaluation Reflex Order Comment Urinalysis results meet criteria for reflex, urine microscopic evaluation performed. 12/05/2024 8:24 AM [facility] Color Yellow 12/05/2024 8:24 AM [facility] Clarity Clear Clear 12/05/2024 8:24 AM [facility] Specific [place] 1.020 1.005 - 1.030 12/05/2024 8:24 AM [facility] pH 6.0 5.0 - 8.0 12/05/2024 8:24 AM [facility] Protein Trace Neg/Trace mg/dL 12/05/2024 8:24 AM [facility] Glucose Negative Negative mg/dL 12/05/2024 8:24 AM [facility] Ketones Negative Negative mg/dL 12/05/2024 8:24 AM [facility] Urobilinogen 0.2 <2.0 EU/dL 12/05/2024 8:24 AM [facility] Bilirubin Negative Negative 12/05/2024 8:24 AM [facility] Blood Small(A) Neg/Trace 12/05/2024 8:24 AM [facility] Nitrite Positive(A) Negative 12/05/2024 8:24 AM [facility] Leukocyte Esterase Moderate(A) Negative 12/05/2024 8:24 AM [facility] Source Clean Catch 12/05/2024 8:24 AM T [facility] Urine URINE SPECIMEN COLLECTION, CLEAN CATCH / Unknown Non-blood Collection / Unknown 12/05/2024 7:59 AM CDT 12/05/2024 8:16 AM CDT Jack Gonzalez Myriam [facility] LAB_1 Final Result Performing Organization Address [facility] de Phone Number [facility] CLIA: [id number] [address] [place] [address], [facility] * (ABNORMAL) Urine Microscopic Evaluation: Clean Catch (12/05/2024 7:59 AM CDT) Only the most recent of2 resultswithin the time period is included. Urine Culture Comment Urinalysis results meet criteria for reflex, culture performed. 12/05/2024 8:24 AM [facility] Red Blood Cells 0-3 0 - 3 /HPF 12/05/2024 8:24 AM [facility] White Blood Cells 21-50(A) 0 - 5 /HPF 12/05/2024 8:24 AM [facility] Bacteria Few(A) None Seen /HPF 12/05/2024 8:24 AM [facility] Squamous Epithelial Cells Few None Seen, Occasiona l, Few /HPF 12/05/2024 8:24 AM [facility] Mucus Present(A) None Seen /HPF 12/05/2024 8:24 AM [facility] White Blood Cell Clumps Present(A) None Seen /HPF 12/05/2024 8:24 AM [facility] Urine URINE SPECIMEN COLLECTION, CLEAN CATCH / Unknown Non-blood Collection / Unknown 12/05/2024 7:59 AM CDT 12/05/2024 8:16 AM CDT Jack VILLAGRAN LAB_1 Final Result Performing Organization Address [facility]/ZIP Mi de Phone Number [facility] CLIA: [id number] [address] [place] [address], [facility] * Mononucleosis Screen (11/23/2024 11:16 AM CDT) [facility] Mononucleosis Screen Negative Negative 11/23/2024 11:32 AM CDT [facility] Blood Venipuncture / Unknown 11/23/2024 11:16 AM CDT 11/23/2024 11:16 AM CDT Tresa Diaz APRN, CNP LAB_1 Final Re sult Performing Organization Address [facility] Co de Phone Number [facility] CLIA: [id number] [address] [place] [address], [facility] * STREP GROUP A, Molecular Detection-Collect Now in current encounter (11/17/2024 12:55 PM CDT) [facility] Group A Strep Not Detected Not Detected 11/17/2024 1:37 PM CDT [facility] Comment:Methodology: Qualita tive real-time PCR assay Swab (Source Required) THROAT SWAB / Unknown Non-blood Collection / Unknown 11/17/2024 12:55 PM CDT 11/17/2024 1:08 PM CDT Cristo Valdez MD LAB_1 Final Result Performing Organization Address [facility] Co de Phone Number [facility] CLIA: [id number] [address] [place] [address], [facility] * (ABNORMAL) Herpes 1/2 by Molecular Detection (V[place]) (11/14/2024 12:00 PM CDT) [facility] HERPES SIMPLEX 1 Not Detected Not Detected 11/15/2024 7:54 PM CDT [facility] Herpes Simplex 2 Detected(A) Not Detected 11/15/2024 7:54 PM CDT [facility] Herpes Simplex 1 and 2 by PCR Source Vagina 11/15/2024 7:54 PM CDT [facility] Swab UTM SPECIMEN FROM VAGINA / Unknown 11/14/2024 12:00 PM CDT 11/14/2024 12:28 PM CDT [facility] - 11/15/2024 7:54 PM CDT Test performed by real-time PCR June Ti Smith MD LAB_1 Final Result Performing Organization Address [facility] Co de Phone Number [facility] CLIA: [id number] [address] [place] [address] * (ABNORMAL) Vaginitis Panel (11/14/2024 12:00 PM CDT) Bacterial Vaginosis Positive(A) Negative 11/15/2024 1:19 PM CDT [facility] Gina species Negative Negative 11/15/2024 1:19 PM CDT [facility] Gina glabrata Negative Negative 11/15/2024 1:19 PM CDT [facility] Trichomonas vaginalis Negative Negative 11/15/2024 1:19 PM CDT [facility] Swab STD SPECIMEN FROM VAGINA / Unknown Non-blood Collection / Unknown 11/14/2024 12:00 PM CDT 11/14/2024 12:27 PM CDT [facility] - 11/15/2024 1:19 PM CDT Test performed by Manager Of Applications Development Mediated Amplification (TMA). Lorena Ti Smith MD LAB_1 Final Result Performing Organization Address [facility] de Phone Number [facility] CLIA: [id number] [address] [place] [address] * Chlamydia & GC (14 Years and Older): Vagina (11/14/2024 12:00 PM CDT) Chlamydia Trachomatis STD Not Detected Not Detected 11/15/2024 1:16 PM CDT [facility] N. gonorrhoeae STD Not Detected Not Detected 11/15/2024 1:16 PM CDT [facility] Swab STD SPECIMEN FROM VAGINA / Unknown Non-blood Collection / Unknown 11/14/2024 12:00 PM CDT 11/14/2024 12:27 PM CDT Narrative [facility] - 11/15/2024 1:16 PM CDT Test performed by Manager Of Applications Development Mediated Amplification (TMA). Lorena Smith MD LAB_1 Final Result [facility] CLIA: [id number] [address] [place] [address] * MM Mammogram Screening Bilat W 3D Calvin W CAD (11/10/2023 8:20 AM CDT) Anatomical Region Laterality Modality Breast Bilateral Mammography Impressions 11/10/2023 9:10 AM CDT : ACR BI-RADS Category 1: Negative RECOMMENDATION: Follow Up Imaging in 12 months - Bilateral The results and recommendations of this examination will be communicated to the patient. Narrative 11/10/2023 9:10 AM CDT MM MAMMOGRAM SCREENING BILAT W 3D CALVIN W CAD performed on 11/10/23 Compared to: 04/06/2022 MM Mammogram Screening Bilat W 3D Calvin W CAD and 11/20/2018 [facility] Mammogram Diag Bilat W 3D Calvin FINDINGS: Bilateral screening mammogram was performed with the assistance of Computer-Aided Detection and breast tomosynthesis. There are scattered areas of fibroglandular density. There is no radiographic evidence of malignancy. us Laya Almeida PA-C RAD CARLOS MANUEL Final R esult * PAP Test (04/06/2022 2:41 PM DIRECTOR OF REAL ESTATE) Case Report Pap Case: [id number] Authorizing Provider: Shannan Moreau MD Collected: 04/06/2022 1441 Ordering Location: [facility] Received: 04/06/2022 1516 Services-SENIOR PROGRAMMER First Screen: Karla Earl, CT (ASCP) Specimen: Pap Test, Routine, Cervix/Endocervix 04/23/2022 11:02 AM DIRECTOR OF REAL ESTATE [facility] Pap Specimen Adequacy Satisfactory for evaluation, endocervical/banda sformation zone component present. 04/23/2022 11:02 AM DIRECTOR OF REAL ESTATE [facility] Pap Interpretation (NILM) Negative for intraepithelial lesion or malignancy. 04/23/2022 11:02 AM DIRECTOR OF REAL ESTATE [facility] at 1102 DIRECTOR OF REAL ESTATE Pap Disclaimer The Pap test is a screening test designed to aid in the detection of cervical cancer and its precursor lesions. It is not a diagnostic procedure and should not be used as the sole means of detecting cervical cancer. Both false-positive and false-negative results may occur. 04/23/2022 11:02 AM DIRECTOR OF REAL ESTATE [facility] Gross Description The specimen is received in SurePath fixative and properly labeled. 1 Pap-stained SurePath slide is prepared. 04/23/2022 11:02 AM DIRECTOR OF REAL ESTATE [facility] Embedded Images 11:02 AM DIRECTOR OF REAL ESTATE [facility] Other Specimen Type ENTIRE ENDOCERVIX / Unknown 04/06/2022 2:41 PM DIRECTOR OF REAL ESTATE 04/06/2022 3:16 PM DIRECTOR OF REAL ESTATE Comment:LMP: No LMP recorded . us Shannan Moreau MD LAB PATHOLOGY Final Re sult Performing Organization Address City/[facility]/ZIP Co de Phone Number [facility] [address] [place] [phone] [place] [address] * HIV 1/2 Ag/Ab 4th Generation (07/29/2017 8:26 AM CDT) HIV-1 p24 Ag and HIV-1/HIV-2 Ab Nonreactive Nonreactive PN SOFT 07/29/2017 8:26 AM CDT 07/29/2017 12:14 PM CDT Narrative PN SOFT - 07/29/2017 1:17 PM CDT Performed at [facility], [address] [place] [address] CLIA number [id number] us Sybil Merrill MD LAB_1 Final Resul t Performing Organization Address [facility]/ZIP Co de Phone Number PN SOFT [address] [place] [id number] * Hepatitis C Virus Tyra In-House (07/29/2017 8:26 AM CDT) Hepatitis C Antibody Nonreactive Nonreactive PN SOFT 07/29/2017 8:26 AM CDT 07/29/2017 12:14 PM CDT Narrative PN NERISSA - 07/29/2017 1:17 PM CDT Performed at [facility] [address] [place] [address] CLIA number [id number] Sybil Merrill MD LAB_1 Final Resul t [facility] [address] [place] [address] from Last 3 Months or Most Recently Relevant to Health Maintenance Insurance [facility] Care Teams Plastic And Reconstructive Surgeon Relationship Specialty Start Date End Date Tresa Diaz, COMMERCIAL STRIPPER, COMMUNITY HEALTH DIRECTOR [address] [place] [address] PCP - General Nurse Practitioner 05/18/24
--- OUTSIDE RECORDS SUMMARY | 2025-01-15 07:22 | XMS_ITS | Encounter Summary ---
Author Organization [employer] Address [address] [place] [address] Care Team Providers Care Slps Name Role Phone Tresa Diaz SEWER CONNECTOR, GAUGE AND WEIGH MACHINE ADJUSTER Primary Care Provider + Encounter Details Date Type Department Care Team (Late st Contact Info) Description 12/07/2024 Results Follow-Up [place] [address] [facility] [address] [place] [address] Siva Hernandez, PASitaC [address] [facility] [place] [address] Social History Tobacco Use Types Packs/Day Years [...] any time in the past 12 m [facility], were you homeless or living in a [facility] (including now)? 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
[2025-01-15 07:31] VITALS: BP 112/73; PULSE 106; RESP 20; TEMP 37.2; O2SAT 99; BMI 29.1
--- NOTE | 2025-01-15 07:47 | CRLHL7_ITS ---
For Patients: As a result of the Cures Act, medical imaging exams and procedure reports are released immediately into your electronic medical record. You may view this report before your referring provider. If you have questions, please contact your health care provider. Indication: Right lower flank pain. UTI symptoms. Technique: Routine enhanced abdomen and pelvis protocol with 80 mL Isovue 370 IV contrast. Comparison: None Findings : Lung bases: No findings for active disease. Liver: Normal in caliber and attenuation. No masses. Gallbladder and bile ducts: Cholecystectomy. No biliary dilation. Pancreas: Unremarkable. Spleen: Normal in caliber. No masses. Adrenal glands: Unremarkable. No masses. Kidneys: No obstruction. No masses. No calculi. GI tract: Normal in caliber and appearance. No sign of mass or inflammation. Appendix: Normal. Lymph nodes: No lymphadenopathy. Aorta and vessels: No aneurysm or severe stenosis. Omentum/peritoneum/retroperitoneum: No masses or infiltration. No free air or significant free fluid. Pelvic organs: Hysterectomy. Unremarkable. Bladder: Decompressed. No focal abnormalities. Bones: No fractures or suspicious bone lesions. Soft Tissues: No mass lesions or significant hernias. Impression: No findings for acute or active abdominal or pelvic disease Please note that all CT scans at this facility use dose modulation, iterative reconstruction, and/or weight-based dosing when appropriate to reduce radiation dose to as low as reasonably achievable. Dictated by Garret Lux MD @ 01/15/2025 9:01:49 AM (Electronically Signed)
--- NOTE | 2025-01-15 07:50 | ED.FEMALEGU ---
HPI - Female Genitourinary General Date Seen: 01/15/25 Chief complaint: Urogenital Problems, Female Stated complaint: UTI Time Seen by Provider: 01/15/25 07:42 Source: patient Mode of arrival: ambulatory Limitations: no limitations History of Present Illness HPI Narrative: Patient is a 44-year-old female presenting to the emergency department for concerns of I urinary tract infection. She states she was treated for urinary tract infection back in November. They had to change her antibiotic due to resistance patterns of the bacteria. States she feels like symptoms resolved up until few days ago when she started having bladder pain and right low flank pain. She states she has had episodes before when she had dysuria and turned out to be herpes. At that time she had lesions on her vagina. This time she states she does not. She took 3 days of acyclovir she feels like it might have helped a little bit but she is unsure. States she now has suprapubic pain and dysuria. Has had some nausea of but no vomiting. Has not taken anything yet for pain. She does states symptoms are worse today. Temperature is 100? at home. No other concerns noted at this time. Related Data Home Medications ?Medication ?Instructions ?Recorded ?Confirmed albuterol sulfate 90 mcg/actuation g inhalation 01/11/22 01/11/22 aerosol inhaler clonazepam 0.5 mg tablet 0.5 mg PO PRN 01/11/22 01/11/22 doxycycline hyclate 100 mg capsule 100 mg PO BID 01/11/22 01/11/22 escitalopram oxalate 5 mg tablet 5 mg PO QDAY 01/11/22 01/15/25 (Lexapro) guaifenesin 1,200 mg tablet, 1,200 mg PO BID 01/11/22 01/11/22 extended release 12 hr (Mucinex) lamotrigine 100 mg tablet 200 mg PO BID 01/11/22 01/15/25 lisdexamfetamine 40 mg capsule 40 mg PO QAM 01/11/22 01/15/25 (Vyvanse) norgestrel 0.3 mg-ethinyl 1 tab PO QDAY 01/11/22 01/11/22 estradiol 30 mcg tablet (Low-Ogestrel (28)) prednisone 20 mg tablet 40 mg PO QDAY 01/11/22 01/11/22 quetiapine 25 mg tablet (Seroquel) 25 mg PO QDAY 01/11/22 01/15/25 topiramate 100 mg tablet 150 mg PO BID 01/11/22 01/15/25 trazodone 150 mg tablet 150 mg PO QDAY 01/11/22 01/15/25 escitalopram oxalate 10 mg tablet 10 mg PO DAILY 01/15/25 01/15/25 valacyclovir 1 gram tablet 1,000 mg PO DAILY 01/15/25 01/15/25 Previous Rx's ?Medication ?Instructions ?Recorded fluticasone 500 mcg-salmeterol 50 1 inh inhalation BID #60 ea 01/11/22 mcg/dose blistr powdr for inhalation (Advair Diskus) ondansetron 4 mg disintegrating 4 mg PO Q6H #20 tabs 01/15/25 tablet sulfamethoxazole 800 1 tab PO BID #14 tabs 01/15/25 mg-trimethoprim 160 mg tablet (Bactrim DS) Allergies Allergy/AdvReac Type Severity Reaction Status Date / Time No Known Drug Allergies Allergy Verified 01/15/25 07:30 Review of Systems Status of ROS: Reports: 10 or more systems reviewed and unremarkable except as noted in History and below [facility] Medical History Severe persistent asthma ?J45.50 - Severe persistent asthma, uncomplicated (ICD-10) Social History Smoking Status: Never smoker Exam Narrative: Exam Narrative: Const: Well-nourished, Well-developed, in mild distress Eyes: PERRL, no conjunctival injection, and symmetrical lids HENT: Atraumatic external nose and ears. Moist mucous membranes. Neck: Symmetric, trachea midline, No thyromegaly. CVS: RRR, No murmurs or gallops. Peripheral pulses 2+ and equal in all extremities RESP: Unlabored respiratory effort. Clear to auscultation bilaterally. GI: Suprapubic and right low flank tenderness, Nondistended, No rebound or guarding. MSK:Extremities w/o deformity, Normal Active ROM Skin: Warm, Dry. No rashes or lesions. Neuro: Normal Muscle tone, No focal neurological deficits. Psych: Awake, Alert, & Oriented x3. Appropriate mood and affect. Const: Vital Signs, click to edit/add: Vital Signs - 24 hr 01/15/25 07:31 Temperature 99.0 F Pulse Rate [Pulse Oximeter] 106 H Respiratory Rate 20 Blood Pressure [Ri ght Upper Arm] 112/73 Pulse Oximetry 99 Oxygen Delivery Me thod Room Air Course Vital Signs Vital signs: Initial Vital Signs Temperature 99.0 F 01/15/25 07:31 Temperature Source Temporal Artery Scan 01/15/25 07:31 Pulse Rate 106 H 01/15/25 07:31 Respiratory Rate 20 01/15/25 07:31 Blood Pressure 112/73 01/15/25 07:31 Blood Pressure Mean 86 01/15/25 07:31 Pulse Oximetry 99 01/15/25 07:31 Oxygen Delivery Method Room Air 01/15/25 07:31 Vital Signs Temperature 99.0 F 01/15/25 07:31 Pulse Rate 106 H 01/15/25 07:31 Respiratory Rate 20 01/15/25 07:31 Blood Pressure 112/73 01/15/25 07:31 Pulse Oximetry 99 01/15/25 07:31 Oxygen Delivery Method Room Air 01/15/25 07:31 Temperature 99.0 F 01/15/25 07:31 Pulse Rate 106 H 01/15/25 07:31 Respiratory Rate 20 01/15/25 07:31 Blood Pressure 112/73 01/15/25 07:31 Pulse Oximetry 99 01/15/25 07:31 Oxygen Delivery Method Room Air 01/15/25 07:31 Medications Administered Medications: Discontinued Medications Generic Name Dose Route Start Last Admin Trade Name Freq PRN Reason Stop Dose Admin Morphine Sulfate 4 mg 01/15/25 07:47 01/15/25 08:20 Morphine 4 Mg/Ml Inj IVP 01/15/25 07:48 4 mg ONCE ONE Administration Ondansetron HCl 4 mg 01/15/25 07:47 01/15/25 08:18 Ondansetron 2 Mg/Ml Inj IVP 01/15/25 07:48 4 mg ONCE ONE Administration MDM - Female Genitourinary MDM Narrative Medical decision making narrative: Patient is a 44-year-old female presenting to the emergency department for suprapubic pain, dysuria, right low flank pain. Differential at this time includes UTI, urolithiasis. Pain is in the back but could be a appendicitis. She is slightly tachycardic but not meeting any other sepsis criteria at this time. I do not believe it is herpes as she is not having any lesions. Will check a urinalysis, CBC, CMP. Morphine given for pain and Zofran given for nausea. Will also do a CT scan for better evaluation. Urinalysis shows signs of UTI. Rest of her lab work shows no concerning abnormalities. CT scan interpreted by myself and the radiologist shows no acute concerning abnormalities she is feeling better after the medication. I do believe she has a UTI and I will treat her with packed. She was resistant Keflex previously so I would not do that. She has previously had C diff with Cipro. She does feel like the Bactrim fully cleared her UTI previously. She is having signs of ascending UTI with the right low flank pain so I will do a 7 day course. She is agreeable to this plan. Will provider Zofran via instymeds. Lab Data Labs: Lab Results 01/15/25 01/15/25 Range/Units 07:49 08:20 WBC 5.41 (4.50-11.00) K/uL RBC 4.22 (4.00-5.20) m/uL Hgb 13.6 (12.0-16.0) gm/dL Hct 39.9 (33.0-51.0) % MCV 95 (80-100) fL MCH 32 (26-34) pg MCHC 34 (32-36) gm/dL RDW Coeff of Jeremy 12.9 (11.5-15.5) % Plt Count 205 (140-440) K/uL Neut % (Auto) 56.5 (42.0-72.0) % Lymph % (Auto) 34.6 (20-44) % Winkler % (Auto) 6.5 (0.0-11.0) % Eos % (Auto) 1.8 (0.0-7.0) % Baso % (Auto) 0.4 (0.0-3.0) % Neut # (Auto) 3.06 (1.7-7.0) K/uL Lymph # (Auto) 1.87 (0.90-2.90) K/uL Winkler # (Auto) 0.40 (0.00-0.90) K/UL Eos # (Auto) 0.10 (0.00-0.50) K/uL Baso # (Auto) 0.02 (0.00-0.30) K/uL Abs Immat Gran (auto) 0.01 (0.00-0.30) K/uL Imm/Tot Granulo (auto) 0.2 % Sodium 139 (135-149) mmol/L Potassium 4.0 (3.6-5.1) mmol/L Chloride 112 (96-114) mmol/L Carbon Dioxide 20 (20-32) mmol/L Anion Gap 7 (7-15) mEq/L BUN 14 (5-24) mg/dL Creatinine 0.8 (0.5-1.5) mg/dL Estimated Creat Clear 75.01 Estimated GFR 94 ml/min Glucose 82 (60-115) mg/dL Calcium 9.4 (8.4-10.6) mg/dL Total Bilirubin 0.3 (0.1-1.5) mg/dL AST 21 (12-35) U/L ALT 19 (4-35) U/L Alkaline Phosphatase 49 (40-150) U/L Total Protein 7.1 (6.0-8.3) g/dL Albumin 4.2 (3.3-5.0) g/dL Urine Color Yellow (Yellow) Urine Appearance Slightly Cloudy A (Clear) Urine pH 5.5 (5.0-8.5) Ur Specific [place] 1.025 (1.000-1.030) Urine Protein Negative (Negative) Urine Glucose (UA) Negative (Negative) Urine Ketones Negative (Negative) Urine Blood Trace-intact A (Negative) Urine Nitrite Negative (Negative) Urine Bilirubin Negative (Negative) Urine Urobilinogen 0.2 (0.2-1.0) Ur Leukocyte Esterase 2+ A (Negative) Urine RBC 0-2 (0-2) Urine WBC 25-50 A (0-5) Ur Squamous Epith Cells Few (None-Few) Urine Bacteria Few A (None) Urine Mucus Few A (None) Urine HCG, Qual Negative (Negative) Imaging Data CT scan abdomen and pelvis: Attestation: I have reviewed the pertinent imaging results. Radiologist's impression: No findings for acute or active abdominal or pelvic disease Please note that all CT scans at this facility use dose modulation, iterative reconstruction, and/or weight-based dosing when appropriate to reduce radiation dose to as low as reasonably achievable. Dictated by Garret Lux MD @ 01/15/2025 9:01:49 AM Discharge Plan Discharge Clinical Impression: Urinary tract infection Qualifiers: Urinary tract infection type: acute cystitis Hematuria presence: without hematuria Qualified Code(s): N30.00 - Acute cystitis without hematuria Patient Disposition: Home, Self-Care Condition: Improved Instructions: Urinary Tract Infection in Women (DC) Additional Instructions: Take the Bactrim as directed. I was unable to prescribe the instymeds so it will be sent to your pharmacy. Also send the Zofran to your pharmacy. Use as needed for nausea.. Return to emergency department for new or worsening symptoms. Recommend following up with your primary care provider if symptoms are not improving in the next few days. We will call you if sensitivities require a change in her antibiotics. Take Tylenol and ibuprofen for pain. Prescriptions: New ondansetron 4 mg tablet,disintegrating 4 mg PO Q6H Qty: 20 0RF sulfamethoxazole-trimethoprim [Bactrim DS] 800-160 mg tablet 1 tab PO BID Qty: 14 0RF No Action topiramate 100 mg tablet 150 mg PO BID Patient Comments: TAKE 1.5 TABLET(S) BY ORAL ROUTE 2 TIMES PER DAY FOR 90 DAYS doxycycline hyclate 100 mg capsule 100 mg PO BID Patient Comments: TAKE 1 CAPSULE BY MOUTH TWO TIMES A DAY. albuterol sulfate 90 mcg/actuation HFA aerosol inhaler inhalation clonazepam 0.5 mg tablet 0.5 mg PO PRN trazodone 150 mg tablet 150 mg PO QDAY Patient Comments: TAKE 1 TABLET(S) BY ORAL ROUTE , AT BEDTIME , FOR 90 DAYS lamotrigine 100 mg tablet 200 mg PO BID Low-Ogestrel (28) 0.3-30 mg-mcg tablet 1 tab PO QDAY Patient Comments: TAKE 1 TABLET BY MOUTH EVERY DAY prednisone 20 mg tablet 40 mg PO QDAY Vyvanse 40 mg capsule 40 mg PO QAM quetiapine [Seroquel] 25 mg tablet 25 mg PO QDAY escitalopram oxalate [Lexapro] 5 mg tablet 5 mg PO QDAY Mucinex 1,200 mg tablet extended release 12hr 1,200 mg PO BID fluticasone propion-salmeterol [Advair Diskus] 500-50 mcg/dose blister with device 1 inh inhalation BID Qty: 60 1RF valacyclovir 1 gram tablet 1,000 mg PO DAILY escitalopram oxalate 10 mg tablet 10 mg PO DAILY Follow Up/Referrals: Provider,Not a Local [Non-Staff, Family Practice] Stand Alone Forms: Veriousth Info Instructions
[2025-01-15 08:02] LABS: Appearance Urine Slightly Cloudy (Clear)
[2025-01-15 08:06] LABS: Ur HCG Qualitative* Negative (Negative)
[2025-01-15] MEDS: ONDANSETRON 2 MG/ML inj 4 MG IVP (08:18)
[2025-01-15] MEDS: MORPHINE 4 MG/ML INJ IVP (08:20)
[2025-01-15 08:30] VITALS: BP 124/72; PULSE 83; RESP 16; O2SAT 100
[2025-01-15 08:45] LABS: Hematocrit* 39.9 % (33.0-51.0); Hemoglobin* 13.6 gm/dL (12.0-16.0); Immature Granulocytes Abs Auto 0.01 K/uL (0.00-0.30); Immature Granulocytes Pct Auto 0.2 %; Lymphocytes Absolute Auto 1.87 K/uL (0.90-2.90); Mean Corpuscular HGB Conc 34 gm/dL (32-36); Mean Corpuscular Hemoglobin 32 pg (26-34); Mean Corpuscular Volume 95 fL (80-100); RDW Coefficient of Variation % 12.9 % (11.5-15.5); Red Blood Count* 4.22 m/uL (4.00-5.20); White Blood Count* 5.41 K/uL (4.50-11.00)
[2025-01-15 08:49] LABS: Slide Review Reflex No
[2025-01-15 08:50] LABS: Albumin* 4.2 g/dL (3.3-5.0); Chloride* 112 mmol/L (96-114); Potassium* 4.0 mmol/L (3.6-5.1); Sodium* 139 mmol/L (135-149)
[2025-01-15 08:52] LABS: Blood Urea Nitrogen* 14 mg/dL (5-24); Creatinine* 0.8 mg/dL (0.5-1.5); Est. Creatinine Clearance* 75.01; Estimated Glomerular Filt Rate 94 ml/min
[2025-01-15 08:53] LABS: Alanine Aminotransferase* 19 U/L (4-35); Alkaline Phosphatase* 49 U/L (40-150); Anion Gap 7 mEq/L (7-15); Aspartate Amino Transferase* 21 U/L (12-35); Bilirubin Total* 0.3 mg/dL (0.1-1.5); Calcium* 9.4 mg/dL (8.4-10.6); Carbon Dioxide* 20 mmol/L (20-32); Glucose* 82 mg/dL (60-115); Total Protein* 7.1 g/dL (6.0-8.3)
[2025-01-15 09:00] VITALS: BP 120/72; PULSE 85; RESP 16; O2SAT 99
== END 2025-01-15 09:23 | disposition home or self-care (01) ==
PROVIDERS: Emergency Provider Student in an Organized Health Care Education/Training Program; PCP Registered Nurse
DX: N39.0 Urinary tract infection, site not specified (principal); R10.A1 Flank pain, right side; Z79.899 Other long term (current) drug therapy
CPT/HCPCS: 36415; 74177; 80053; 81001; 81025; 85025; 87086; 99284; 99285; J2270; J2405; Q9967

== ENCOUNTER 2025-03-06 08:18 | Emergency (ER) | payer OTHER, SELFPAY ==
--- OUTSIDE RECORDS SUMMARY | 2025-01-24 10:40 | XMS_ITS | Encounter Summary ---
Author Organization [employer] Address [address] [place] [address] Care Team Providers Care Crystal Gazer Name Role Phone Tresa Diaz ADVERTISING EXECUTIVE, AUTOMATIC TELLER MACHINE SERVICER Primary Care Provider + Reason for Visit * ReasonCommentsDiarrheaAnd then forms to soft and back to wateryNausea Encounter Details DateTypeDepartmentCare Team (Latest Contact Info)Uciqzhcdkut94/13/2025 10:40 AM CSTOffice Visit [facility] [facility] [address] [place] [phone] [place] [address] [place], [place] [phone] Diarrhea, unspecified type (Primary Dx); Protracted diarrhea Social History Tobacco UseTypesPacks/DayYears UsedDateSmoking Tobacco: NeverPassive Smoke Exposure: NeverSmokeless Tobacco: NeverAlcohol UseStandard Drinks/WeekComments Not Currently2 (1 standard drink = 0.6 oz pure alcohol)AUDIT-CAnswerDate RecordedQ1: How often do you have a drink containing alcohol?Never01/25/2020 Average Number of DrinksNot on file01/25/2020Frequency of Binge DrinkingNot on file01/25/2020PHQ-2AnswerDate RecordedPHQ-2 Wlqdn098Hunger Vital Sign AnswerDate RecordedWithin the past 12 months, you worried that your food would run out before you got the money to buymore.Never true11/23/2024Within the past 12 months, the food you bought just didn't last and you didn't have money to get more.Never true11/23/2024PRAPARE - TransportationAnswerDate RecordedIn the past 12 months, has lack of transportation kept you from medical appointments or from getting medications?No11/23/2024In the past 12 months, has lack of transportation kept you from meetings, work, or from getting things needed for daily living?No11/23/2024Housing Stability Vital SignAnswerDate RecordedIn the last 12 months, was there a time when you were not able to pay the mortgage or rent on time?No11/23/2024Number of Times Moved in the Last YearNot on file 11/23/2024t any time in the past 12 months, were you homeless or living in a jail (including now)?No11/23/2024Financial Resource StrainAnswerDate Recorded Is it hard for you to pay for the very basics like food, housing, medical care or heating?No07/25/2023Food InsecurityAnswerDate RecordedDoes your food run out before you have the money to buy more?No07/25/2023Transportation NeedsAnswerDate RecordedDoes a lack of transportation keep you from your medical appointments or from getting your medications?No07/25/2023CommentsNoSex and Gender InformationValueDate RecordedSex Assigned at XsqxpMdrfjg54/26/2022 6:21 PM CDT Legal BkqWdsnev96/18/2015 4:56 AM CDTGender FoizolxgYaefpz23/26/2022 6:21 PM CDT Sexual XsdenphckldYdedldcm87/26/2022 6:21 PM CDTOccupationIndustryJob Start Date Job End DateSenior Income Tax ManagerNot on fileNot on fileNot on filedocumented as of this encounter Last Filed Vital Signs Vital SignReadingTime TakenCommentsBlood Mvhpdgmw588/7411 10:31 AM PHLEBOTOMY PROGRAM COORDINATOR Izini5502 10:31 AM CSTTemperature--Respiratory Rate--Oxygen Saturation-- Inhaled Oxygen Concentration--Qpmoyo51.4 kg (164 lb)01/24/2025 10:31 AM PHLEBOTOMY PROGRAM COORDINATOR Height--Body Mass Index28.6005/18/2024 8:26 AM CSTdocumented in this encounter Progress Notes * Dinh Roche MD - 01/24/2025 10:40 AM CST Brian Harrell is a 44 y.o. female who presents for Diarrhea (And then forms to soft and back to watery ) and Nausea History of Present Illness Sharri Solis is a 44 year old female who presents with diarrhea and nausea. She experiences watery diarrhea approximately twelve times yesterday, with a slight improvement to more solid stools this morning, though she became looser as the day progressed. Symptoms began the night before yesterday. She experiences nausea and some abdominal discomfort. She notices mucus in her stools but no blood. She completed a course of Bactrim for a urinary tract infection on Tuesday. She has a history of C. difficile infection following clindamycin treatment for bacterial vaginosis after a hysterectomy last June. No recent travel outside the country, fevers, or blood in her stools. She is able to drink fluids but finds that eating normal meals upsets her stomach, leading her toconsume only crackers this morning. She denies being up at night with symptoms and reports urinating normally. Objective BP 125/74 Pulse 90 Wt 164 lb (74.4 kg) LMP 07/10/2023 BMI 28.60 kg/m?? Temp 98.6 Physical Exam VITALS: T- 98.6 Alert, NAD Results Assessment/Plan Acute diarrhea Recent antibiotic use raises concern for C. difficile recurrence despite mild symptoms. Stool testing warranted. - Ordered stool collection for C. difficile testing. - Advised small, frequent fluid intake. - Instructed to monitor for fever, bloody stools, or unrelenting pain. - Advised to stay home and rest. Diarrhea, unspecified type - C.Difficile Toxin,Molecular Detection,; Future Protracted diarrhea - Enteric Stool Pathogens Panel; Future Other orders - ondansetron (ZOFRAN-ODT) 4 MG disintegrating tablet; Take 1 Tablet (4 mg) by mouth every 6 hours. Dinh Roche MD 01/24/2025, 3:49 PM BOTOMY PROGRAM COORDINATOR documented in this encounter Plan of Treatment NameTypePriorityAssociated DiagnosesOrder ScheduleC.Difficile Toxin,Molecular Detection,MicrobiologyRoutine Diarrhea, unspecified type Expected: 01/24/2025, Expires: 04/24/2025documented as of this encounter Visit Diagnoses Diagnosis Diarrhea, unspecified type- Primary Protracted diarrhea Diarrhea documented in this encounter Care Teams Team MemberRelationshipSpecialtyStart DateEnd Date Tresa Diaz, ADVERTISING EXECUTIVE, AUTOMATIC TELLER MACHINE SERVICER [address] [place] [address] PCP - GeneralNurse Practitioner05/18/24documented as of this encounter
--- OUTSIDE RECORDS SUMMARY | 2025-01-24 11:30 | XMS_ITS | Encounter Summary ---
Author Organization [email or web address] Address [address] [place] [address] Care Team Providers Care Cloth Finishing Range Operator Name Role Phone Tresa Diaz OPENER, LOG PROCESSOR OPERATOR Primary Care Provider + Encounter Details DateTypeDepartmentCare Team (Latest Contact Info)Uulxthfgnku14/13/2025 11:30 AM CSTLab Visit [facility] [address] [place] [phone] Protracted diarrhea (Primary Dx) Social History Tobacco UseTypesPacks/DayYears UsedDateSmoking Tobacco: NeverPassive Smoke Exposure: NeverSmokeless Tobacco: NeverAlcohol UseStandard Drinks/WeekComments Not Currently2 (1 standard drink = 0.6 oz pure alcohol)AUDIT-CAnswerDate RecordedQ1: How often do you have a drink containing alcohol?Never01/25/2020 Average Number of DrinksNot on file01/25/2020Frequency of Binge DrinkingNot on file01/25/2020PHQ-2AnswerDate RecordedPHQ-2 Zdtsh248Hunger Vital Sign AnswerDate RecordedWithin the past 12 [...] you homeless or living in a senior living (including now)?No11/23/2024Financial Resource StrainAnswerDate Recorded Is it hard for you to pay for the very basics like food, housing, medical care or heating?No07/25/2023Food InsecurityAnswerDate RecordedDoes your food run out before you have the money to buy more?No07/25/2023Transportation NeedsAnswerDate RecordedDoes a lack of transportation keep you from your medical appointments or from getting your medications?No07/25/2023CommentsNoSex and Gender InformationValueDate RecordedSex Assigned at TpqlmAtxkcy72/26/2022 6:21 PM CDT Legal GebXpprkq12/18/2015 4:56 AM CDTGender ChyjugyfTroybr78/26/2022 6:21 PM CDT Sexual RwwcyuklwudVriasuby92/26/2022 6:21 PM CDTOccupationIndustryJob Start Date Job End DateSenior Income Tax ManagerNot on fileNot on fileNot on filedocumented as of this encounter Plan of Treatment Not on file documented as of this encounter Procedures Procedure NamePriorityDate/TimeAssociated DiagnosisCommentsORANGE STOOL KDEYXCVWBThsfvwg19/13/2025 11:22 AM LAB CLERK Protracted diarrhea WHITE STOOL KCEDGAOGFAutssnv43/13/2025 11:22 AM LAB CLERK Protracted diarrhea CONTAINER JTDYKtsrgel54/13/2025 11:22 AM LAB CLERK Protracted diarrhea documented in this encounter Results * [place] Stool Container (01/24/2025 11:22 AM LAB CLERK)ComponentValueRef RangeTest MethodAnalysis TimePerformed AtPathologist SignatureContainer GivenDone 01/24/2025 1:00 PM CSTTRAVER LABORATORYSpecimen (Source)Anatomical Location / LateralityCollection Method / VolumeCollection TimeReceived TimeOther Specimen Type01/24/2025 11:22 AM CST01/24/2025 11:22 AM LAB CLERK Narrative Authorizing ProviderResult TypeResult StatusDavid T Kaley MDLAB_1Final Result Performing OrganizationAddressCity/State/ZIP CodePhone Number [facility] CLIA: [id number] [address] [place] [phone] * White Stool Container (01/24/2025 11:22 AM LAB CLERK)ComponentValueRef RangeTest MethodAnalysis TimePerformed AtPathologist SignatureContainer GivenDone 01/24/2025 1:00 PM CSTTRAVER LABORATORYSpecimen (Source)Anatomical Location / LateralityCollection Method / VolumeCollection TimeReceived TimeOther Specimen Type01/24/2025 11:22 AM CST01/24/2025 11:22 AM LAB CLERK Narrative Authorizing ProviderResult TypeResult StatusDavid T Kaley MDLAB_1Final Result Performing OrganizationAddSelect [facility]/ZIP CodePhone [facility] CLIA: [id number] [address] [place] [phone] documented in this encounter Visit Diagnoses Diagnosis Protracted diarrhea- Primary Diarrhea documented in this encounter Care Teams Team MemberRelationshipSpecialtyStart DateEnd Date Tresa Diaz, OPENER, LOG PROCESSOR OPERATOR [address] [place] [address] PCP - GeneralNurse Practitioner05/18/24documented as of this encounter
--- OUTSIDE RECORDS SUMMARY | 2025-02-03 12:20 | XMS_ITS | Encounter Summary ---
Author Organization [facility] Address [address] [place] [address] Care Team Providers Care [facility] Director Name Role Phone Tresa Diaz MASS SPECTROMETRY SPECIALIST, POULTRY GRADER Primary Care Provider + Reason for Visit * ReasonCommentsDysuria Encounter Details DateTypeDepartmentCare Team (Latest Contact Info)Ylrlehqjhyy83/23/2025 12:20 PM CSTOffice Visit [place] [address] [facility] [address] [place] [address] Tanya Izquierdo MD [address] [place], [place] [address] Dysuria; Acute cystitis without hematuria Social History Tobacco UseTypesPacks/DayYears UsedDateSmoking Tobacco: NeverPassive Smoke Exposure: NeverSmokeless Tobacco: NeverAlcohol UseStandard Drinks/WeekComments Not Currently2 (1 standard drink = 0.6 oz pure alcohol)AUDIT-CAnswerDate RecordedQ1: How often do you have a drink containing alcohol?Never01/25/2020 Average Number of DrinksNot on file01/25/2020Frequency of Binge DrinkingNot on file01/25/2020PHQ-2AnswerDate RecordedPHQ-2 Iyaov172Hunger Vital Sign AnswerDate RecordedWithin the past 12 [...] before you have the money to buy more?07/25/2023Transportation NeedsAnswerDate RecordedDoes a lack of transportation keep you from your medical appointments or from getting your medications?No07/25/2023CommentsNoSex and Gender InformationValueDate RecordedSex Assigned at MhpraEwooxc22/26/2022 6:21 PM CDT Legal RyhNzqlqm72/18/2015 4:56 AM CDTGender RyamdpeuUplmef75/26/2022 6:21 PM CDT Sexual XxmpwpbrsgxAmskxxpz10/26/2022 6:21 PM CDTOccupationIndustryJob Start Date Job End DateSenior Income Tax ManagerNot on fileNot on fileNot on filedocumented as of this encounter Last Filed Vital Signs Vital SignReadingTime TakenCommentsBlood Qtbvlwqn173/8211 12:01 PM ACADEMIC RECORDS SPECIALIST Rjacv0308 12:01 PM RLRMjvdfwsghpc96 ??C (98.6 ??F)02/03/2025 12:01 PM CSTRespiratory Kdca769404/05/2024 12:01 PM CSTOxygen Lspvmmcjfl401%02/03/2025 12:01 PM CSTInhaled Oxygen Concentration--Weight--Height--Body Mass Index-- documented in this encounter Patient Instructions * Patient Instructions* Tanya Izquierdo MD - 02/03/2025 12:20 PM ACADEMIC RECORDS SPECIALIST Based on your symptoms, exam and urinalysis you have been diagnosed as having a urinary tract infection (UTI). Most UTI's can be treated with oral antibiotics quite easily. Unfortunately some of the bacteria that cause UTI's can have resistance to some antibiotics. For this reason we are sending your urine for a culture to grow the bacteria causing the infection. When this test result comes back if it shows that your bacteria are resistant to the antibiotic you received today then we will change it. If it does not grow any bacteria or it shows that the antibiotic you have will take care of itthey will not call those results but they will be in your MyChart if you have that. It takes a few days for urine culture results to come back. In the meantime: Go to the Emergency Department or return to Urgent Care if: 1: You are vomiting or having intense pain in your back or bladder area. 2: You are having a new fever over 101> Drink a lot of water and take all of your medication as prescribed unless advised otherwise becauseof the urine culture results. You may take an over the counter medication called pyridium, brand name Azo, or it may be prescribed for you for the discomfort in the bladder. This medication turns theurine bright orange. If there was blood in the urine on your original urinalysis we recommend a follow up urinalysis after you have completed the antibiotics to show resolution of this finding. If the blood is still present then additional testing may be recommended. If your symptoms worsen, do not completely resolve or return quickly please follow up with your regular doctor or return to Urgent Care. EMIC RECORDS SPECIALIST * Attachments The following attachments cannot be sent through Care Everywhere. * UTI (Urinary Tract Infection): Female (Welsh) documented in this encounter Progress Notes * Tanya Izquierdo MD - 02/03/2025 12:20 PM CST [facility] Patient: Vinita Solis Date of : 1980 (44 y.o.) Subjective Nursing Notes: Lux Rogers, RN 02/03/25 1204 Signed Pt here with c/o dysuria, urinary urgency, frequency. Per pt, was seen in the ER for UTI in Decemberand is unsure if it cleared since then. Sx has been on and off until recently worsened. Was also seen in November for similar sx and placed on Bactrim. Denies flank/abd/back pain, fever/chills. History of Present Illness The patient presents with symptoms suggestive of a urinary tract infection (UTI). Symptoms began yesterday, including nausea and pain, which she associates with a possible UTI. She recalls a previous visit to the emergency room approximately two weeks ago for a UTI, where she experienced significant pain and nausea. At that time, she was prescribed Bactrim. She is uncertain if her current symptoms are a continuation of the previous UTI or a new infection.During a previous episode in November, she was initially treated with Keflex and then switched to Bactrim. The current symptoms are similar to past episodes, with sudden onset of nausea and back pain. She has not received results from any culture done during the ER visit and does not have access to a patient portal for those records. She is concerned about recurrent UTIs, particularly after intercourse, and has started taking cranberry vitamins as a preventive measure. She is currently taking AZO for pain relief, which she took immediately after experiencing symptoms. No vomiting, back pain, or fever at this time. She reports nausea. Past Medical History[1] QUEtiapine, budesonide-formoterol, clonazePAM, escitalopram, lamoTRIgine, lisdexamfetamine, ondansetron, topiramate, traZODone, and valACYclovir No Known Allergies Social History Social History Narrative Ex is alcoholic, they have 50/50 custody. 04/06/2022 - Lives with daughter and son, about 50% of the time. 11/2024: In a new relationship. Things are going very well. Kids are 11 and 15. 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 Physical Exam: BP 116/82 (BP Location: Right Arm, BP Cuff Size: Regular - Long) Pulse 92 Temp 37 ??C (98.6 ??F) (Oral) Resp 16 LMP 07/10/2023 SpO2 100% Gen: Alert and oriented, NAD Laboratory Testing: Results for orders placed or performed in visit on 02/03/25 Urinalysis Routine, Micro/Culture if Pos: Clean Catch Specimen: Clean Catch; Urine Result Value Ref Range Urine Microscopic Evaluation Reflex Order Comment Urinalysis results meet criteria for reflex, urine microscopic evaluation performed. Color Yellow Clarity Clear Clear Specific [place] >=1.030 (A) 1.005 - 1.030 pH 5.0 5.0 - 8.0 Protein Trace Neg/Trace mg/dL Glucose Negative Negative mg/dL Ketones Negative Negative mg/dL Urobilinogen 1.0 <2.0 EU/dL Bilirubin Negative Negative Blood Negative Neg/Trace Nitrite Positive (A) Negative Leukocyte Esterase Small (A) Negative Source Clean Catch Urine Microscopic Evaluation: Clean Catch Specimen: Clean Catch; Urine Result Value Ref Range Urine Culture Comment Urinalysis results meet criteria for reflex, culture performed. Red Blood Cells 0-3 0 - 3 /HPF White Blood Cells 51-100 (A) 0 - 5 /HPF Bacteria Occasional (A) None Seen /HPF Squamous Epithelial Cells Occasional None Seen, Occasional, Few /HPF Mucus Present (A) None Seen /HPF Radiology: No results found. MDM: UA strongly suggests urinary tract infection and symptoms are consistent. Cx pending. Initiating treatment. Interventions: Orders Placed This Encounter Urinalysis Routine, Micro/Culture if Pos: Clean Catch Urine Microscopic Evaluation: Clean Catch Urine Culture Assessment 1. Dysuria 2. Acute cystitis without hematuria Plan Patient Discharge Medications & Instructions: Medications Prescribed this Visit None Patient Instructions Based on your symptoms, exam and urinalysis you have been diagnosed as having a urinary tract infection (UTI). Most UTI's can be treated with oral antibiotics quite easily. Unfortunately some of the bacteria that cause UTI's can have resistance to some antibiotics. For this reason we are sending your urine for a culture to grow the bacteria causing the infection. When this test result comes back if it shows that your bacteria are resistant to the antibiotic you received today then we will change it. If it does not grow any bacteria or it shows that the antibiotic you have will take care of itthey will not call those results but they will be in your MyChart if you have that. It takes a few days for urine culture results to come back. In the meantime: Go to the Emergency Department or return to Urgent Care if: 1: You are vomiting or having intense pain in your back or bladder area. 2: You are having a new fever over 101> Drink a lot of water and take all of your medication as prescribed unless advised otherwise becauseof the urine culture results. You may take an over the counter medication called pyridium, brand name Azo, or it may be prescribed for you for the discomfort in the bladder. This medication turns theurine bright orange. If there was blood in the urine on your original urinalysis we recommend a follow up urinalysis after you have completed the antibiotics to show resolution of this finding. If the blood is still present then additional testing may be recommended. If your symptoms worsen, do not completely resolve or return quickly please follow up with your regular doctor or return to Urgent Care. 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 Per pt, was seen in the ER for UTI in Decemberand is unsure if it cleared since then. Sx has been on and off until recently worsened. Was also seen in November for similar sx and placed on Bactrim. Denies flank/abd/back pain, fever/chills. EMIC RECORDS SPECIALIST documented in this encounter Plan of Treatment Not on file documented as of this encounter Procedures Procedure NamePriorityDate/TimeAssociated DiagnosisCommentsURINE CULTURESTAT 02/03/2025 12:05 PM ACADEMIC RECORDS SPECIALIST Dysuria URINALYSIS ROUTINE, MICRO/CULTURE IF VBFBPXP80/23/2025 12:05 PM ACADEMIC RECORDS SPECIALIST Dysuria UA DIFRUCKTP87/23/2025 12:05 PM ACADEMIC RECORDS SPECIALIST Dysuria documented in this encounter Results * (ABNORMAL) Urine Culture (02/03/2025 12:05 PM ACADEMIC RECORDS SPECIALIST)ComponentValueRef RangeTest MethodAnalysis TimePerformed AtPathologist SignatureUrine CultureGrowth(A) 02/04/2025 3:54 PM CSTESSENTIA HEALTH LABORATORYUrine Culture<10,000 CFU/mL Mixed Bacterial Opthey3002/04/2025 3:54 PM [facility] Comment: Mixed Bacterial Growth indicates the specimen is likely contaminated at collection with urogenital and/or fecal clark. The presence of organisms at <10,000 cfu/ml in culture, UTI unlikely. Specimen (Source)Anatomical Location / LateralityCollection Method / Volume Collection TimeReceived TimeUrineURINE SPECIMEN COLLECTION, CLEAN CATCH / UnknownNon-blood Collection / Elkxgef0602/03/2025 12:05 PM CST02/03/2025 12:24 PM ACADEMIC RECORDS SPECIALIST Narrative Authorizing ProviderResult TypeResult StatusGautam K Myriam MBBSLAB_1Final Result Performing OrganizationAddressCity/State/ZIP CodePhone Number [facility] CLIA: [id number] [address] [place] [address] * (ABNORMAL) Urine Microscopic Evaluation: Clean Catch (02/03/2025 12:05 PM ACADEMIC RECORDS SPECIALIST) ComponentValueRef RangeTest MethodAnalysis TimePerformed AtPathologist SignatureUrine Culture CommentUrinalysis results meet criteria for reflex, culture performed.02/03/2025 12:24 PM CSTLISBON LABORATORYRed Blood Cells 0-30 - 3 /HPF02/03/2025 12:24 PM CSTLISBON LABORATORYWhite Blood Cells 51-100(A)0 - 5 /HPF02/03/2025 12:24 PM [facility] LABORATORYBacteria Occasional(A)None Seen /HPF02/03/2025 12:24 PM [facility] LABORATORYSquamous Epithelial CellsOccasionalNone Seen, Occasional, Few /HPF02/03/2025 12:24 PM [facility] LABORATORYMucusPresent(A)None Seen /HPF02/03/2025 12:24 PM [facility] LABORATORYSpecimen (Source)Anatomical Location / Laterality Collection Method / VolumeCollection TimeReceived TimeUrineURINE SPECIMEN COLLECTION, CLEAN CATCH / UnknownNon-blood Collection / Ikowxml5802/03/2025 12:05 PM CST02/03/2025 12:11 PM ACADEMIC RECORDS SPECIALIST Narrative Authorizing ProviderResult TypeResult StatusGautam Carlos Miguel MBBSLAB_1Final Result Performing OrganizationAddressCity/State/ZIP CodePhone Number [facility] CLIA: [id number] [address] [place] [address] * (ABNORMAL) Urinalysis Routine, Micro/Culture if Pos: Clean Catch (02/03/2025 12:05 PM ACADEMIC RECORDS SPECIALIST)ComponentValueRef RangeTest MethodAnalysis TimePerformed At Pathologist SignatureUrine Microscopic Evaluation Reflex Order Comment Urinalysis results meet criteria for reflex, urine microscopic evaluation performed.02/03/2025 12:24 PM [facility] LNULGCORAWXujmnEnbxmj58/23/2025 12:24 PM [facility] FORURVQHCEBweerbvXwgmwXuked18/23/2025 12:24 PM [facility] LABORATORYSpecific [place]>=1.030(A)1.005 - 1.5399002/03/2025 12:24 PM [facility] LABORATORYpH5.05.0 - 8.011 12:24 PM [facility] LABORATORYProteinTraceNeg/Trace mg/dL02/03/2025 12:24 PM [facility] LABORATORYGlucoseNegativeNegative mg/dL02/03/2025 12:24 PM [facility] LABORATORYKetonesNegativeNegative mg/dL02/03/2025 12:24 PM [facility] LABORATORYUrobilinogen1.0<2.0 EU/dL02/03/2025 12:24 PM [facility]ORY OunawxxmdTujssvhgRoredgzi63/23/2025 12:24 PM [facility] LABORATORYBlood NegativeNeg/Trace02/03/2025 12:24 PM [facility] LABORATORYNitritePositive(A) Itsupwgv00/23/2025 12:24 PM [facility] LABORATORYLeukocyte EsteraseSmall(A) Ptxgzknk86/23/2025 12:24 PM [facility] LABORATORYSourceClean Catch02/03/2025 12:24 PM [facility] LABORATORYSpecimen (Source)Anatomical Location / LateralityCollection Method / VolumeCollection TimeReceived TimeUrineURINE SPECIMEN COLLECTION, CLEAN CATCH / UnknownNon-blood Collection / Unknown 02/03/2025 12:05 PM CST02/03/2025 12:11 PM ACADEMIC RECORDS SPECIALIST Narrative Authorizing ProviderResult TypeResult StatusGautam K Myriam MBBSLAB_1Final Result Performing OrganizationAddressCity/State/ZIP CodePhone Number [facility] CLIA: [id number] [address] [place] [address] documented in this encounter Visit Diagnoses Diagnosis Dysuria Acute cystitis without hematuria Acute cystitis documented in this encounter Care Teams Team MemberRelationshipSpecialtyStart DateEnd Date Tresa Diaz, MASS SPECTROMETRY SPECIALIST, POULTRY GRADER [address] [place], [place] [phone] PCP - GeneralNurse Practitioner05/18/24documented as of this encounter
--- OUTSIDE RECORDS SUMMARY | 2025-03-06 08:20 | XMS_ITS | Encounter Summary ---
Author Organization [facility] Address [address] [place] [address] Care Team Providers Care Plant Maintenance Mechanic Name Role Phone Tresa Diaz INK JET OPERATOR, MED CARE MANAGER Primary Care Provider + Encounter Details DateTypeDepartmentCare Team (Latest Contact Info)Letckhwefhc69/24/2025Results Follow-Up [facility] [address] [facility] [address] [place] [address] Ana Tan, PASitaC [address] [place], [place] [address] Social History Tobacco UseTypesPacks/DayYears UsedDateSmoking Tobacco: NeverPassive Smoke Exposure: NeverSmokeless Tobacco: NeverAlcohol UseStandard Drinks/WeekComments Not Currently2 (1 standard drink = 0.6 oz pure alcohol)AUDIT-CAnswerDate RecordedQ1: How often do you have a drink containing alcohol?Never01/25/2020 Average Number of DrinksNot on file01/25/2020Frequency of Binge DrinkingNot on file01/25/2020PHQ-2AnswerDate RecordedPHQ-2 Suwks821Hunger Vital Sign AnswerDate RecordedWithin the past 12 [...] or living in a group home (including now)?No11/23/2024Financial Resource StrainAnswerDate Recorded Is it hard for you to pay for the very basics like food, housing, medical care or heating?No07/25/2023Food InsecurityAnswerDate RecordedDoes your food run out before you have the money to buy more?No07/25/2023Transportation NeedsAnswerDate RecordedDoes a lack of transportation keep you from your medical appointments or from getting your medications?No07/25/2023CommentsNoSex and Gender InformationValueDate RecordedSex Assigned at BbqmkUbqggv17/26/2022 6:21 PM CDT Legal JhkTwrhhj08/18/2015 4:56 AM CDTGender WcvflnxwMgghsm86/26/2022 6:21 PM CDT Sexual HnubldwieevHnhnorbj08/26/2022 6:21 PM CDTOccupationIndustryJob Start Date Job End DateSenior Income Tax ManagerNot on fileNot on fileNot on filedocumented as of this encounter Plan of Treatment Not on file documented as of this encounter Visit Diagnoses Not on filedocumented in this encounter Care Teams Team MemberRelationshipSpecialtyStart DateEnd Date Tresa Diaz, INK JET OPERATOR, MED CARE MANAGER [address] [place] [address] PCP - GeneralNurse Practitioner05/18/24documented as of this encounter
--- OUTSIDE RECORDS SUMMARY | 2025-03-06 08:20 | XMS_ITS | Clinical Summary ---
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 Name Role Phone Clinic, [facility] Pro vider Sybil Merrill MD Unavailable Unavailable Allergies No known active allergies Medications MedicationSigDispense QuantityRefillsLast FilledStart DateEnd DateStatus lisdexamfetamine (VYVANSE) 30 MG capsule Take 30 mg by mouth dailyActive escitalopram (LEXAPRO) 20 MG tablet Take 30 mg by mouth dailyActive norgestrel-ethinyl estradiol (LO/OVRAL) 0.3-30 MG-MCG per tablet Take 1 tablet by mouth dailyActive lamoTRIgine (LAMICTAL) 150 MG tablet Take 300 mg by mouth dailyActive traZODone (DESYREL) 150 MG tablet Take 150 mg by mouth At BedtimeActive order for DME Indications:Closed fracture of right ankle, initial encounterEquipment being ordered: Other: Roll about Treatment Diagnosis: Right bimalleolar ankle fracture open reduction and internal fixation Will need for total of 3 months (until June 11, 2019) 1 Units 03/12/2019Active senna (SENOKOT) 8.6 MG tablet Indications:Closed fracture of right ankle, initial encounterTake 1 tablet by mouth daily as needed for constipation 40 tablet 03/12/2019Active oxyCODONE (ROXICODONE) 5 MG tablet Indications:Trimalleolar fracture of right ankle, closed, initial encounterTake 1 tablet (5 mg) by mouth every 6 hours as needed for moderate to severe pain 20 tablet 03/13/2019Active senna-docusate (SENOKOT-S/PERICOLACE) 8.6-50 MG tablet Indications:Trimalleolar fracture of right ankle, closed, initial encounterTake 1 tablet by mouth 2 times daily as needed for constipation 30 tablet 03/13/2019Active lisdexamfetamine (VYVANSE) 30 MG capsule Take 30 mg by mouth every morning.Active traZODone (DESYREL) 100 MG tablet Take 200 mg by mouth at bedtime.Active escitalopram (LEXAPRO) 10 MG tablet Take 10 mg by mouth daily.Active lamoTRIgine (LAMICTAL) 200 MG tablet Take 200 mg by mouth 2 times daily.Active ferrous sulfate (FEROSUL) 325 (65 Fe) MG tablet Take 325 mg by mouth daily (with breakfast).Active clonazePAM (KLONOPIN) 0.5 MG tablet Take 0.25 mg by mouth 2 times daily as needed for anxiety.Active ibuprofen (ADVIL/MOTRIN) 200 MG tablet Indications:S/P hysterectomyTake 4 tablets (800 mg) by mouth every 6 hours as needed for other (mild and/or inflammatory pain).5Active acetaminophen (TYLENOL) 325 MG tablet Indications:S/P hysterectomyTake 1-2 tablets (325-650 mg) by mouth every 6 hours as needed for mild pain.5Active oxyCODONE (ROXICODONE) 5 MG tablet Indications:S/P hysterectomyTake 1-2 tablets (5-10 mg) by mouth every 4 hours as needed for moderate to severe pain. 12 tablet 5Active topiramate (TOPAMAX) 100 MG tablet Take 150 mg by mouth 2 times daily.Active fluticasone-salmeterol (ADVAIR) 250-50 MCG/ACT inhaler Inhale 1 puff into the lungs 2 times daily.Active metoclopramide (REGLAN) 10 MG tablet Take 1 tablet (10 mg) by mouth 3 times daily as needed for nausea. 10 tablet 5Active Active Problems ProblemNoted DateDiagnosed DateC. difficile uwseegf8907/06/20245609Hfxmwm33/24/2025 Nebniedof16/24/2025Severe episode of recurrent major depressive disorder, without psychotic sguvwcur93/24/2025S/P xanpcnqibbrl79/18/2025Restless legs txgoxkhu68/07/2025Overweight (BMI 25.0-29.9)07/26/2023aynaud's phenomenon without tqmyvcru69/14/2024Impulse control ujsarisv32/10/2021 Overview (07/05/2024): shopping Mild persistent asthma without eizndzmhfkgy47/22/2020Closed right ankle fracture 03/10/2019Trimalleolar fracture of right ankle, closed, initial encounter 03/10/2019Low grade squamous intraepithelial lesion on cytologic smear of cervix (LGSIL)11/29/2018 Overview (07/05/2024): CCSM Review: 11/2018: LSIL HPV+ (16 & other) 11/2018: Dana RAMANA 1 01/2020: LSIL HPV+ (other) 03/2020: Dana neg 01/2021: NILM HPV+ (other) 03/2022: NILM, HPV- Plan, per ASCCP guidelines: co-test in 3 years (03/2025) Bipolar 2 mefbrqnz13/25/2019GAD (generalized anxiety disorder)05/20/2017 Attention deficit disorder (ADD) without wgiuujrvdqtpt02/19/2017Mild obstructive sleep apnea11/25/2016 Overview (07/05/2024): Setting: APAP 6-13 cmH20 FFM Supplied by: [facility] PSG done: 10/05/12 [place] AHI 6 (EDS) RDI 20 Lowest O2 Sat: 93% [place] Exercise-induced xuwbcl4109/17/2013 Overview (07/05/2024): AMP - 09/17/13. Previous sefuljs4208/28/2013Indication for care in labor or delivery 08/27/2013Labor and delivery indication for care or /06/2014 Indication for care or intervention in labor or ofurnety28/27/2014Carpal tunnel /30/2012Diffuse cervicobrachial jtelynle29/30/2012Tension headache 04/12/2011MTHFR etjkcfnq96/12/2011 Overview (07/05/2024): Carrier Attention deficit hyperactivity disorder (ADHD)10/01/2010Seasonal allergies 08/03/2010Major depressive disorder, recurrent episode, in full remission 07/21/20108601Swysvcom64/14/2011Mild major sklkkyvsqy02/23/2011Contraception 06/03/20101948Bqqcwcz05/23/2011Family history of diabetes vyxwhahl51/23/2011 Hyperlipidemia LDL goal <8070906/03/2010 Immunizations ImmunizationAdministration DatesNext DueInfluenza (IIV3) PF11/19/2009TD,PF 7+ (Tenivac)12/12/2008 Family History Medical HistoryRelationCommentsFamily History BymzunpeTjildmy7VdrvsgorRqkyspPpah IIBlood DiseaseMotherblood clots during pregnancyFamily History NegativeSister2 Breast CancerNo family hx ofRelationStatusCommentsBrotherFatherAliveMotherAlive Sister Social History Tobacco UseTypesPacks/DayYears UsedDateSmoking Tobacco: NeverSmokeless Tobacco: Never Tobacco Cessation:Counseling Given: Not Answered Alcohol UseStandard Drinks/WeekCommentsYes0 (1 standard drink = 0.6 oz pure alcohol)weeklyAdolescent EducationAnswerDate RecordedGetting School Help Needed Not on file12/29/2022Food InsecurityAnswerDate RecordedWithin the past 12 months, did you worry that your food would run out before you got money to buy more?No05/29/2024Within the past 12 months, did the food you bought just not last and you didn???t have money to getmore?No05/29/2024Housing StabilityAnswer Date RecordedDo you have housing? (Housing is defined as stable permanent housing and does not include staying outside in a car, in a tent, in an abandoned building, in an overnight half-way, or couch-surfing.)Yes05/29/2024re you worried about losing your housing?No05/29/2024Financial Resource Strain AnswerDate RecordedWithin the past 12 months, have you or your family members you live with been unable to get utilities (heat, electricity) when it was really needed?No05/29/2024Transportation NeedsAnswerDate RecordedWithin the past 12 months, has lack of transportation kept you from medical appointments, getting your medicines, non-medical meetings or appointments, work, or from getting things that you need?No05/29/2024Interpersonal SafetyAnswerDate Recorded Do you feel physically and emotionally safe where you currently live?Yes 05/29/2024Within the past 12 months, have you been hit, slapped, kicked or otherwise physically hurt by someone?No05/29/2024Within the past 12 months, have you been humiliated or emotionally abused in other ways by your partner or ex-partner?No05/29/2024CommentsNoSex and Gender InformationValueDate RecordedSex Assigned at BirthNot on fileLegal KxoVvtfgz08/04/2012 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 Gender IdentityNot on fileSexual OrientationNot on file Last Filed Vital Signs Vital SignReadingTime TakenCommentsBlood Gahkhzur621/7804 6:26 PM CDT Cfxvw2477 6:26 PM KAILgyxffwboqg86.1 ??C (98.8 ??F)07/05/2024 8:56 PM CDTRespiratory Wquo068907/05/2024 6:26 PM CDTOxygen Eyuaqdcozn70%07/05/2024 6:26 PM CDTInhaled Oxygen Concentration--Iifejt85.1 kg (161 lb 2.5 oz)07/05/2024 6:26 PM PHNBdvgwb214.3 cm (5' 3.5)05/29/2024 4:33 PM CDTBody Mass Index28.1 05/29/2024 4:33 PM CDT Plan of Treatment Health MaintenanceDue DateLast DoneCommentsADVANCE CARE FAURASBK56/28/1982ANNUAL REVIEW OF HM IGBUAM19 1981ASTHMA ACTION PLAN1981ASTHMA CONTROL TEST 1981 7278GHZHC03/28/1982HEPATITIS B VACCINE (2 of 2 - CpG 2-dose series) 503/5YEARLY PREVENTIVE VISIT/, 04/06/2022, 01/25/2020, Additional history existsCOVID-19 VACCINE ( season) /01/2024, 01/31/2023, 02/15/2022, Additional history existsINFLUENZA VACCINE (#1)/01/2024, 01/31/2023, 11/10/2021, Additional history dqxpzqPHY62/24/364361/, 11/17/2018, 11/17/2018, Additional history exists MAMMO VCYUCMNEB15, 11/10/2023, 04/06/2022, Additional history existsDIABETES ARBKFSGXT13/24/438306/, 03/13/2019, 03/10/2019, Additional history existsZOSTER VACCINE (1 of 2)2DTAP/TDAP/TD VACCINE (5 - Td or Tdap)/, 06/14/2013, 04/28/2013, Additional history exists HEPATITIS C IUYQWAQFWEjoyhmaqu21/18/2018HIV EODWLADLTAokvjdyhi77/18/2018, 01/19/2013HPV FKOBHNJKurnwwhsg89/24/2023, 01/30/2021, 1PNEUMOCOCCAL VACCINE: PEDIATRICS (0 to 5 YEARS) AND AT-RISK PATIENTS (6 to 49 YEARS)Completed 07/26/2023, 01/04/2017MENINGITIS VACCINEAged OutNo longer eligible based on patient's age to complete this topic Medical Devices ImplantedTypeAreaManufacturerDevice IdentifierShelf Expiration DateModel / Serial / Lot2.7mm Cortex Screw, Self-Tapping, 18mm Implanted:Qty: [facility] [id number] / / [id number] Cannulated Screw, Long Thread, 52mm Implanted:Qty: 1 on 03/12/2019 [facility] InsheSVORZTM323.752 / / 8004 [id number] Threaded Guide Wire, 150mm Length Implanted:Qty: 2 on 03/12/2019 [facility] WuctkDTUGJSX731.722 / / 8004 [id number] Cannulated Drill Bit, Quick Coupling, 160mm Length Implanted:Qty: 1 on 03/12/2019 [facility] TzntdENWQJBL786.67 / / 8004 [id number]-Jxlmi Tubular Lcp Plates, With Collar, 8 Hole Implanted:Qty: 1 on 03/12/2019 [facility] EnklxBLRWSEV467.381 / 8008 [id number] X 125mm Drill Bit Implanted:Qty: 1 on 03/12/2019 [facility] DivrkOGTIKCB537.21 / / 8008 [id number] X 110mm Gold Drill Bit Implanted:Qty: 1 on 03/12/2019 [facility] XmuimOUBAWGH394.25 / / 8008 [id number] X 125mm Drill Bit Implanted:Qty: 1 on 03/12/2019 [facility] ZbhtgHMXGOLD533.28 / / 8008 [id number] Cortex Screw, Self-Tapping, 12mm Implanted:Qty: 2 on 03/12/2019 [facility] LiclwLLDNLHE170.812 / 8008 [id number] Cancellous Bone Screw, Fully Threaded, 16mm Implanted:Qty: 1 on 03/12/2019 [facility]: KnmkqABWEGQQ618.016 / 8008 [id number] Cancellous Bone Screw, Fully Threaded, 18mm Implanted:Qty: 1 on 03/12/2019 [facility]: GldybZWAXTNK817.018 / 8008 [id number] Cannulated Screw, Long Thread, 54mm Implanted:Qty: 1 on 03/12/2019 [facility] TnviwLEMBNNO702.754 8004 [id number] Procedures Procedure NamePriorityDate/TimeAssociated DiagnosisCommentsCOMPREHENSIVE METABOLIC ENRUODNZK03/24/2025 6:45 PM CDT HIV 1 AND 2 ANTIBODY (QUEST)Fbbbxny7801/19/2013 PAP IMAGED THIN LAYER SQZRKYVxqwejf21/01/2010 from Last 3 Months or Most Recently Relevant to Health Maintenance Results * (ABNORMAL) Comprehensive metabolic panel (07/05/2024 6:45 PM CDT)Component ValueRef RangeTest MethodAnalysis TimePerformed AtPathologist SignatureSodium 203675 - 145 mmol/L07/05/2024 7:19 PM CDTRH LABORATORYPotassium3.43.4 - 5.3 mmol/L07/05/2024 7:19 PM CDTRH LABORATORYCarbon Dioxide (CO2)20(L)22 - 29 mmol/L07/05/2024 7:19 PM CDTRH LABORATORYAnion Yzz874 - 15 mmol/L07/05/2024 7:19 PM CDTRH LABORATORYUrea Ouxanrwo80.86.0 - 20.0 mg/dL07/05/2024 7:19 PM CDTRH LABORATORYCreatinine0.910.51 - 0.95 mg/dL07/05/2024 7:19 PM CDTRH LABORATORYGFR Ehtbdfgu28>60 mL/min/1.90q34007/05/2024 7:19 PM [facility] Comment:eGFR calculated using 2020 CKD-EPI equation.Calcium9.08.8 - 10.4 mg/dL 07/05/2024 7:19 PM CDTRH RSCJLNCREUFfgpthue357(H)98 - 107 mmol/L07/05/2024 7:19 PM CDTRH LPFJJYHTSRVsqamcc538(H)70 - 99 mg/dL07/05/2024 7:19 PM CDTRH LABORATORYAlkaline Srfuvqahwdu54223 - 150 U/L04/ 7:19 PM CDTRH QMFURHYSRVJCX64(H)0 - 45 U/L07/05/2024 7:19 PM CDTRH IQPPTMJVTZCTG05(H)0 - 50 U/L07/05/2024 7:19 PM CDTRH LABORATORYProtein Total7.06.4 - 8.3 g/dL07/05/2024 7:19 PM CDTRH LABORATORYAlbumin4.33.5 - 5.2 g/dL07/05/2024 7:19 PM CDTRH LABORATORYBilirubin Total0.5<=1.2 mg/dL07/05/2024 7:19 PM CD[facility] LAB[facility]ORY Specimen (Source)Anatomical Location / LateralityCollection Method / Volume Collection TimeReceived TimeBloodSTRUCTURE OF LEFT UPPER LIMB / Unknown Venipuncture / Qtiowaq2207/05/2024 6:45 PM CDT07/05/2024 6:54 PM CDT Narrative Authorizing ProviderResult TypeResult StatusSadeyanira Sanders MDLAB - BLOOD ORDERABLESFinal ResultPerforming OrganizationAddressCity/State/ZIP CodePhone Number [facility] [address] [facility] (1st floor, no room number) [place] [address], [facility] * HIV 1 and 2 Antibody (QUEST) (01/19/2013)ComponentValueRef RangeTest Method Analysis TimePerformed AtPathologist SignatureHIV 1&2 AntibodyNegativeSpecimen (Source)Anatomical Location / LateralityCollection Method / VolumeCollection TimeReceived TimeBlood specimen (specimen) Narrative Authorizing ProviderResult TypeResult StatusPatient ReportedLAB - BLOOD ORDERABLESFinal Result * PAP imaged thin layer screen (01/12/2010)ComponentValueRef RangeTest Method Analysis TimePerformed AtPathologist SignaturePAP Date01/12/2010MISYSComment: histroricalPAPnilMISYSSpecimen (Source)Anatomical Location / Laterality Collection Method / VolumeCollection TimeReceived TimeCytologic material (specimen) Narrative Authorizing ProviderResult TypeResult StatusSalina WHITELAB Sita OPTIME CLINICAL SPECIMENFinal ResultPerforming OrganizationAddressCity/State/ZIP Code Phone Number MIS[facility] from Last 3 Months or Most Recently Relevant to Health Maintenance Insurance * Guarantor: Vinita Solis TypeRelation to PatientDate of BirthPhone Billing AddressPersonal/NwmhebPfui33/28/198206506 [place] [address] Advance Directives For more information, please contact: [phone] * Full Code (Latest Code Status on File) Date ActivatedDate InactivatedComments05/29/2024 4:15 PM05/30/2024 2:38 PMAll basic and advanced life-sustaining interventions are performed as appropriate QuestionAnswerCommentsCode status determined by:* Discussion with patient/ legal decision maker * Full Code Date ActivatedDate XzgflsuppvyWgpootpl41/28/2019 7:06 PM03/13/2019 4:22 PM QuestionAnswerCommentsCode status determined by:* Discussion with patient/legal decision maker Care Teams Team MemberRelationshipSpecialtyStart [facility] [id number] [place] [id number] PCP - General05/29/24 Sybil Merrill [place] [address] [place] [id number] [facility]05/09/24
[2025-03-06 08:21] VITALS: BP 110/78; PULSE 92; RESP 18; TEMP 37.2; O2SAT 100
--- OUTSIDE RECORDS SUMMARY | 2025-03-06 08:21 | XMS_ITS | Clinical Summary ---
Author Organization [facility] Address [address] [place] [address] Care Team Providers Care Swimming Teacher Name Role Phone Tresa Diaz I&C TECH, PARTS CONTROL CLERK Primary Care Provider + Source Comments You are receiving this document as you are listed as the primary care provider,follow-up provider, or the patient has been referred to you for consultation.This is in compliance with the Medicare and[facility] Hospitalca[facility] EHR Incentive Program,which states Providers who transition their patient to another setting of careor provider of care or refers their patient to another provider of care shouldprovide summary care record for each transition of care or referral. [facility] Allergies No known active allergies Medications MedicationSigDispense QuantityRefillsLast FilledStart DateEnd DateStatus topiramate (TOPAMAX) 100 MG tablet Take 1.5 Tablets by mouth two times a day. 270 Tablet ctive clonazePAM (KLONOPIN) 0.5 MG tablet TAKE 1/2 TABLET BY MOUTH IN THE MORNING PLAS 1/2 TABLET DAILY NEEDED FOR ANXIET/PANIC 30 Tablet 02/26/2021ctive traZODone (DESYREL) 100 MG tablet Take 2 Tablets by mouth daily at bedtime. 180 Tablet 03/02/2021ctive escitalopram (LEXAPRO) 10 MG tablet Take 1 Tablet (10 mg) by mouth daily.Active lisdexamfetamine (VYVANSE) 30 MG capsule Take 1 Capsule (30 mg) by mouth every morning.Active budesonide-formoterol (SYMBICORT) 160-4.5 MCG/ACT inhaler Indications:Mild persistent asthma without complication (HRC)Take 1-2 puffs twice a day. May take an additional 1 puff every 4 hours as needed for wheezing or shortness of breath. 1 Each 1105Active QUEtiapine (SEROQUEL) 25 MG tablet Take by mouth.5Active valACYclovir (VALTREX) 1 g tablet Indications:HSV (herpes simplex virus) anogenital infectionTake 1 Tablet (1,000 mg) by mouth daily. 90 Tablet 5Active ondansetron (ZOFRAN-ODT) 4 MG disintegrating tablet Take 1 Tablet (4 mg) by mouth every 6 hours.5Active nitrofurantoin monohydrate macrocrystal (MACROBID) 100 MG capsule Indications:Acute cystitis without hematuriaTake 1 Capsule (100 mg) by mouth two times a day for 7 days. 14 Capsule Expired Active Problems ProblemNoted DateDiagnosed DateHistory of PCR DNA positive for KBP787 Overview (11/15/2024): 11/2024 Restless legs jzcfnepl62/07/2025Psychophysiologic epryghvd25/07/2025Sleep disorder, ehuidmdvuaz94/07/2025Overweight (BMI 25.0-29.9)07/26/2023Impulse control xpskizbe32/10/2021 Overview (07/21/2020): shopping Mild persistent asthma without lvjrdefaorcm90/22/2020Low grade squamous intraepithelial lesion on cytologic smear of cervix (LGSIL)11/29/2018 Overview (05/05/2022): CCSM Review: 11/2018: LSIL HPV+ (16 & other) 11/2018: [place] RAMANA 1 01/2020: LSIL HPV+ (other) 03/2020: [place] neg 01/2021: NILM HPV+ (other) 03/2022: NILM, HPV- Plan, per ASCCP guidelines: co-test in 3 years (03/2025) Bipolar 2 bkeeqgwc38/25/2019GAD (generalized anxiety disorder)05/20/2017 Attention deficit disorder (ADD) without hqifaoduarxdw19/19/2017Mild obstructive sleep apnea11/25/2016 Overview (04/15/2023): Setting: APAP 6-13 cmH20 FFM Supplied by: [employer] PSG done: 10/05/12 [facility] [place] AHI 6 (EDS) RDI 20 Lowest O2 Sat: 93% [place] Controlled substance agreement vlsccr4101/20/2015 Overview (12/14/2016): Diagnosis: ADD Medication: Vyvanse Controlled Substance Agreement reviewed and signed: yes Date agreement signed: 01/20/2015 , med change 11/30/16 Refill plan: Pt is to be seen in clinic every 6 months Clinician: Una Marshall PA-C, Sybil Merrill MD MTHFR vztdpzba08/12/2011 Overview (07/26/2023): Overview: Carrier Major depressive disorder, recurrent episode, in full ahkcslppv03/10/2011 Resolved Problems ProblemNoted DateDiagnosed DateResolved DateRaynaud's phenomenon without /03/2024 Assessment & Plan (07/26/2023 3:55 PM CDT): - Discussed medication trial to see if symptoms improve for cold, discolored hands. Pt does not need to continue medication, more to see if diagnosis is correct. Mild persistent asthma with acute rxzlacofsfkg82/05/202205/ Assessment & Plan (02/15/2022 12:15 PM LOCOMOTIVE FIRER): - Improving from last time, has been on advair for 1 month and had recurrent thrush. Will treat with diflucan. Will continue advair for now and put in order for Covid PT program. Okay to get covid booster today as has been over a month since infection. Continue albuterol. Major depressive disorder, recurrent, ivamekpn70 Overview (06/23/2017): Partial hospitalization [facility] 05/30/17 [facility] sqnymttrlumiy30 Overview (03/24/2017): right Obesity, Class I, BMI 30-34.909/Nexplanon in place10/07/2016 10/29/2016 Overview (10/07/2016): Nexplanon: Lot [id number], Exp 10/2018 To remove or replace by 10/08/2019 Anxiety and tmubmqfpwn69Other specified eating disorder 07/26/2023 Overview (07/26/2023): This problem was marked as resolved by a user in a SmartForm. Nsagyojez99/14/2024 Overview (07/26/2023): This problem was marked as resolved by a user in a SmartForm. Encounters DateTypeDepartmentCare DepsVqrekzfiqzn20/24/2025Results Follow-Up [facility] [facility] [address] [place] [phone] Ana Tan PA-C 02/03/2025 12:20 PM CSTOffice Visit [facility] [address] [place] [phone] Tanya Izquierdo MD Dysuria; Acute cystitis without /13/2025 11:30 AM CSTLab Visit [address] [phone] Protracted diarrhea (Primary Dx)01/24/2025 10:40 AM CSTOffice Visit [facility] [address] [facility] [address] [place] [phone] Dinh Roche MD Diarrhea, unspecified type (Primary Dx); Protracted jradhmqf77/23/2025 7:40 AM CDTLab Visit [facility] [address] [place] [address] Screening cholesterol level; Screening for diabetes fkxcnixh98/15/2025 10:30 AM CDTE-Visit [facility] [address] [facility] [address] [place] [phone] Tresa Diaz, I&C TECH, PARTS CONTROL CLERK Chief Comp: QUESTIONS, WYLIJED9112/26/2024 10:00 AM CDTOffice Visit [facility] OB-STITCHER FEEDER [address] [address] Lorena Smith MD HSV (herpes simplex virus) anogenital infection (Primary Dx)12/07/2024Results Follow-Up [facility] [address] [address] [place] [phone] Siva Hernandez, PASitaC 12/05/2024 8:00 AM CDTOffice Visit [facility] [address] [place] [phone] Mick Simental, I&C TECH, PARTS CONTROL CLERK Dysuria; Urinary tract infection without hematuria, site unspecifiedfrom Last 3 Months Immunizations ImmunizationAdministration DatesNext Vrl7aHDE (Gardasil 9)04/06/2022,01/30/2021, 04/03/2020hicken Pox - History of Lhjjdwh9312/09/1982Flu Vac Preserv Free (3+yrs) 12/16/2013,11/29/2012Fluzone Qiv Multidose Vial 0.25 (6-35 Mos)11/06/2015HepB Adult (Heplisav-B, 19+ yrs, 2 dose series)11/23/2024,05/18/2024Influenza (Flucelvax), Preserv Free QIV11/10/2021Influenza IIV4 (Quadrivalent) 0.5mL (75456)01/31/2023,11/16/2020,11/09/2019,11/25/2018,10/26/2017,11/06/2015, 12/16/2013Influenza ccIIV3 6 months+ (Flucelvax)11/23/2024Influenza, Unspecified Xsciiifggox12/11/2024,11/11/2016,11/13/2015,12/03/2014Moderna COVID-19 12+ (Spikevax)01/31/2023Moderna Monovalent 12+1PCV20 (Kbihupq17)07/26/2023 PPSV23 (Pneumovax)01/04/2017Pfizer Bivalent 12+12/23/2023,2Pfizer Monovalent 12+ Purple Top06/24/2020,06/03/2020TDAP (ADACEL)06/14/2013TDAP (BOOSTRIX)12/29/2008Tdap07/26/2023,04/28/2013 Family History Medical HistoryRelationNameCommentsDepressionBirth FatherJoeDiabetesBirth Father JoeDiabetes, Type IIBirth FatherJoeInsulin requiringHypertensionBirth FatherJoe DVT/PEBirth MotherJanafter birthHigh CholesterolBirth MotherJanHigh Triglycerideselevated triglyceridesBirth MotherJanAnxietyBrotherAndyDepression BrotherAndyHigh CholesterolBrotherAndyHigh TriglyceridesHypertensionBrotherAndy Sleep apneaBrotherAndySnoringBrotherAndyDue to sleep apnea finally diagnosed DepressionCousinDepressionDaughterMeghanCancer, PancreaticMaternal AuntCancer, SkinMaternal GrandfatherLarryDepressionMaternal GrandfatherLarryHigh Cholesterol Maternal GrandmotherJeanHigh Triglycerideselevated triglyceridesMaternal GrandmotherJeanCancer, BreastPaternal Aunt 1Cancer, OvaryPaternal Aunt 2Alcohol AbusePaternal Aunt 3Mary JoDepressionPaternal Aunt 3Mary JoHeart DiseasePaternal GrandfatherLesDepressionPaternal GrandmotherMaryObesityPaternal GrandmotherMary Binge Eating DisorderSister 1SarahBipolar DisorderSister 1SarahDepressionSister 1SarahAnxietySister 2ADHDSonJoeyAnxietySonJoeyAutismSonJoeyAnesthesia Reaction Negative Family HistoryRelationNameStatusCommentsBirth FatherJoeAliveBirth MotherJanAliveBrotherAndyAliveCousinDaughterMeghanAliveMaternal AuntAlive Maternal GrandfatherLarryDeceasedMaternal GrandmotherJeanDeceasedPaternal Aunt 1 AlivePaternal Aunt 2AlivePaternal Aunt 3Mary JoDeceasedPaternal GrandfatherLes DeceasedPaternal GrandmotherMaryDeceasedSister 1SarahAliveSister 2SonJoeyAlive Social History Tobacco UseTypesPacks/DayYears UsedDateSmoking Tobacco: NeverPassive Smoke Exposure: NeverSmokeless Tobacco: Never Tobacco Cessation:Counseling Given: Not Answered Alcohol UseStandard Drinks/WeekCommentsNot Currently2 (1 standard drink = 0.6 oz pure alcohol)AUDIT-CAnswerDate RecordedQ1: How often do you have a drink containing alcohol?Never01/25/2020Average Number of DrinksNot on file01/25/2020 Frequency of Binge DrinkingNot on file01/25/2020PHQ-2AnswerDate RecordedPHQ-2 Osjdv191Hunger Vital SignAnswerDate RecordedWithin the past 12 months, you worried that your food would run out before you got the money to buymore. Never true11/23/2024Within the past 12 months, the food you bought just didn't last and you didn't have money to get more.Never true11/23/2024PRAPARE - TransportationAnswerDate RecordedIn the past 12 months, has lack of transportation kept you from medical appointments or from getting medications?No 11/23/2024In the past 12 months, has lack of transportation kept you from meetings, work, or from getting things needed for daily living?No11/23/2024 Housing Stability Vital SignAnswerDate RecordedIn the last 12 months, was there a time when you were not able to pay the mortgage or rent on time?No11/23/2024 Number of Times Moved in the Last YearNot on file11/23/2024t any time in the past 12 months, were you homeless or living in a usp (including now)?No 11/23/2024Financial Resource StrainAnswerDate RecordedIs it hard for you to pay for the very basics like food, housing, medical care or heating?No07/25/2023Food InsecurityAnswerDate RecordedDoes your food run out before you have the money to buy more?No07/25/2023Transportation NeedsAnswerDate RecordedDoes a lack of transportation keep you from your medical appointments or from getting your medications?No07/25/2023CommentsNoSex and Gender InformationValueDate RecordedSex Assigned at QqvkgTkbgun07/26/2022 6:21 PM CDTLegal SexFemale 06/29/2014 4:56 AM CDTGender JzwokatcOkqvfs00/26/2022 6:21 PM CDTSexual ZtrhdbrqflpCicdefww06/26/2022 6:21 PM CDTOccupationIndustryJob Start DateJob End DateSenior Income Tax ManagerNot on fileNot on fileNot on file Last Filed Vital Signs Vital SignReadingTime TakenCommentsBlood Lykqvtyd904/8202/03/2025 12:01 PM LOCOMOTIVE FIRER Slshz918402/03/2025 12:01 PM FTJXwtckofgjqx53 ??C (98.6 ??F)02/03/2025 12:01 PM CSTRespiratory Tpkl660504/05/2024 12:01 PM CSTOxygen Xqsjllrtwu851%02/03/2025 12:01 PM CSTInhaled Oxygen Concentration--Ajhrlq38.4 kg (164 lb)01/24/2025 10:31 AM FMNWqfhln026.3 cm (5' 3.5)05/18/2024 8:26 AM CSTBody Mass Index28.6 05/18/2024 8:26 AM LOCOMOTIVE FIRER Plan of Treatment Health MaintenanceDue DateLast BcqiDkfczymzClafdbpul20/29/202508/, 04/06/2022, 11/20/2018COVID-19 Vaccine ( season)/01/2024, 01/31/2023, 02/15/2022, Additional history existsAsthma ACT (score of 20 or higher)603/, 07/26/2023, 12/23/2022, Additional history exists Adult Preventive Visit/02/2025, 07/26/2023, 04/06/2022, Additional history existsDiabetes Screening- (based on age and BMI)81, 07/26/2023, 08/14/2022, Additional history existsZoster/Shingles Vaccine (1 of 2)2DTaP/Tdap/Td Vaccine (5 - Tdap), 06/14/2013, 04/28/2013, Additional history existsHIV Screening (Preventive Services) Aqkmvkoyh86/18/2018Hep C Screening (Preventive Services)Ypunxyyio29/18/2018 Cervical Cancer YahjolaktDtmcoqpyekea29/24/2023, 04/06/2022, 01/30/2021, Additional history existsHPV GyeiudgKmfxmbykv83/24/2023, 01/30/2021, 04/03/2020 Pneumococcal EinnqquCrlpifmpw08/14/2024, 01/04/2017HepB VaccineCompleted 11/23/2024, 05/18/2024Influenza XdvbcaiEokjioisn50/12/2025, 12/23/2023, 01/31/2023, Additional history existsHepA VaccineAged OutNo longer eligible based on patient's age to complete this topicHib VaccineAged OutNo longer eligible based on patient's age to complete this topicIPV (Polio) VaccineAged OutNo longer eligible based on patient's age to complete this topicMCV4 Vaccine Aged OutNo longer eligible based on patient's age to complete this topic Meningococcal B VaccineAged OutNo longer eligible based on patient's age to complete this topic Procedures Procedure NamePriorityDate/TimeAssociated DiagnosisCommentsURINE CULTURESTAT 02/03/2025 12:05 PM LOCOMOTIVE FIRER Dysuria UA IBLLJMWFD03/23/2025 12:05 PM LOCOMOTIVE FIRER Dysuria URINALYSIS ROUTINE, MICRO/CULTURE IF DJNLIVB93/23/2025 12:05 PM LOCOMOTIVE FIRER Dysuria ORANGE STOOL IBGFCQARDWuyreaw40/13/2025 11:22 AM LOCOMOTIVE FIRER Protracted diarrhea WHITE STOOL RYGAOBODMIiklpac88/13/2025 11:22 AM LOCOMOTIVE FIRER Protracted diarrhea CONTAINER RPDFUeogtua46/13/2025 11:22 AM LOCOMOTIVE FIRER Protracted diarrhea HGB B4ZDbagsqh69/23/2025 7:47 AM CDT Screening for diabetes mellitus LIPID PANEL & DIRECT LDL (IF NEEDED)Dbwopxn4501/03/2025 7:47 AM CDT Screening cholesterol level URINE YRKXOJXILWS49/24/2025 7:59 AM CDT Dysuria UA IGGUTEVSC55/24/2025 7:59 AM CDT Dysuria URINALYSIS ROUTINE, MICRO/CULTURE IF PXVIELN7312/05/2024 7:59 AM CDT Dysuria MM MAMMOGRAM SCREENING BILAT W 3D CALVIN W ALLKlfkcjt01/29/2024 8:20 AM CDT CYTOLOGY (PAP)Ujomnig3604/06/2022 2:41 PM LOCOMOTIVE FIRER Screening for malignant neoplasm of cervix HIV 1/2 AG/AB 4TH YRGKswokkl27/18/2018 8:26 AM CDT Screen for STD (sexually transmitted disease) HEPATITIS C ANTIBODY, WITH REFLEX (ANTI-HCV)Olmrowv3107/29/2017 8:26 AM CDT Screen for STD (sexually transmitted disease) from Last 3 Months or Most Recently Relevant to Health Maintenance Results * (ABNORMAL) Urine Culture (02/03/2025 12:05 PM LOCOMOTIVE FIRER) Only the most recent of2 resultswithin the time period is included. ComponentValueRef RangeTest MethodAnalysis TimePerformed AtPathologist Signature Urine CultureGrowth(A)02/04/2025 3:54 PM CSTESSENTIA HEALTH LABORATORYUrine Culture<10,000 CFU/mL Mixed Bacterial Codigy4302/04/2025 3:54 PM CSTESSENTIA HEALTH LABORATORYComment: Mixed Bacterial Growth indicates the specimen is likely contaminated at collection with urogenital and/or fecal clark. The presence of organisms at <10,000 cfu/ml in culture, UTI unlikely. Specimen (Source)Anatomical Location / LateralityCollection Method / Volume Collection TimeReceived TimeUrineURINE SPECIMEN COLLECTION, CLEAN CATCH / UnknownNon-blood Collection / Tkismzt5002/03/2025 12:05 PM CST02/03/2025 12:24 PM LOCOMOTIVE FIRER Narrative Authorizing ProviderResult TypeResult StatusGautam K Myriam MBBSLAB_1Final Result Performing OrganizationAddressCity/State/ZIP CodePhone Number [facility] CLIA: [id number] [address] [place] [address] * (ABNORMAL) Urinalysis Routine, Micro/Culture if Pos: Clean Catch (02/03/2025 12:05 PM LOCOMOTIVE FIRER) Only the most recent of2 resultswithin the time period is included. ComponentValueRef RangeTest MethodAnalysis TimePerformed AtPathologist Signature Urine Microscopic Evaluation Reflex Order CommentUrinalysis results meet criteria for reflex, urine microscopic evaluation performed.02/03/2025 12:24 PM [facility] YDRZKELDBZUfxweCbuxwg56/23/2025 12:24 PM [facility] GavzhgmXdzxfFnkkc81/23/2025 12:24 PM [facility] LABORATORYSpecific [place] >=1.030(A)1.005 - 1.4762002/03/2025 12:24 PM [facility] LABORATORYpH5.05.0 - 8.0 02/03/2025 12:24 PM [facility] LABORATORYProteinTraceNeg/Trace mg/dL02/03/2025 12:24 PM [facility] LABORATORYGlucoseNegativeNegative mg/dL02/03/2025 12:24 PM [facility] LABORATORYKetonesNegativeNegative mg/dL02/03/2025 12:24 PM [facility] LABORATORYUrobilinogen1.0<2.0 EU/dL02/03/2025 12:24 PM [facility] DBDGHDFNAEAqxobappcAfzszjyySdcpjuiv11/23/2025 12:24 PM [facility] BloodNegativeNeg/Trace02/03/2025 12:24 PM [facility] LABORATORYNitritePositive (A)Sqbmmlef84/23/2025 12:24 PM [facility] LABORATORYLeukocyte EsteraseSmall(A) Noaihkft77/23/2025 12:24 PM [facility] LABORATORYSourceClean Catch02/03/2025 12:24 PM [facility] LABORATORYSpecimen (Source)Anatomical Location / LateralityCollection Method / VolumeCollection TimeReceived TimeUrineURINE SPECIMEN COLLECTION, CLEAN CATCH / UnknownNon-blood Collection / Unknown 02/03/2025 12:05 PM CST02/03/2025 12:11 PM LOCOMOTIVE FIRER Narrative Authorizing ProviderResult TypeResult StatusGautam K Myriam MBBSLAB_1Final Result Performing OrganizationAddressCity/State/ZIP CodePhone Number [facility] CLIA: [id number] [place] [address], [facility] * (ABNORMAL) Urine Microscopic Evaluation: Clean Catch (02/03/2025 12:05 PM LOCOMOTIVE FIRER) Only the most recent of2 resultswithin the time period is included. ComponentValueRef RangeTest MethodAnalysis TimePerformed AtPathologist Signature Urine Culture CommentUrinalysis results meet criteria for reflex, culture performed.02/03/2025 12:24 PM [facility] ENGLANDRed Blood Cells0-30 - 3 /HPF02/03/2025 12:24 PM [facility] ENGLANDWhite Blood Nkbup30-855(A)0 - 5 /HPF02/03/2025 12:24 PM [facility] LABORATORYBacteriaOccasional(A)None Seen /HPF02/03/2025 12:24 PM [facility] LABORATORYSquamous Epithelial Cells OccasionalNone Seen, Occasional, Few /HPF02/03/2025 12:24 PM [facility] LABORATORYMucusPresent(A)None Seen /HPF02/03/2025 12:24 PM [facility] LABORATORYSpecimen (Source)Anatomical Location / LateralityCollection Method / VolumeCollection TimeReceived TimeUrineURINE SPECIMEN COLLECTION, CLEAN CATCH / UnknownNon-blood Collection / Xrbunrf4402/03/2025 12:05 PM CST02/03/2025 12:11 PM LOCOMOTIVE FIRER Narrative Authorizing ProviderResult TypeResult StatusGautam K Myriam MBBSLAB_1Final Result Performing OrganizationAddressCity/State/ZIP CodePhone Number [facility] CLIA: [id number] [place] [address] * Lawrence Stool Container (01/24/2025 11:22 AM LOCOMOTIVE FIRER)ComponentValueRef RangeTest MethodAnalysis TimePerformed AtPathologist SignatureContainer GivenDone 01/24/2025 1:00 PM CSTHILLSBORO LABORATORYSpecimen (Source)Anatomical Location / LateralityCollection Method / VolumeCollection TimeReceived TimeOther Specimen Type01/24/2025 11:22 AM CST01/24/2025 11:22 AM LOCOMOTIVE FIRER Narrative Authorizing ProviderResult TypeResult StatusDavid T Kaley MDLAB_1Final Result Performing OrganizationAddressCity/State/ZIP CodePhone Number [facility] CLIA: [id number] [address] [place] [address] * White Stool Container (01/24/2025 11:22 AM LOCOMOTIVE FIRER)ComponentValueRef RangeTest MethodAnalysis TimePerformed AtPathologist SignatureContainer GivenDone 01/24/2025 1:00 PM [facility] LABORATORYSpecimen (Source)Anatomical Location / LateralityCollection Method / VolumeCollection TimeReceived TimeOther Specimen Type01/24/2025 11:22 AM CST01/24/2025 11:22 AM LOCOMOTIVE FIRER Narrative Authorizing ProviderResult TypeResult StatusDavid T Kaley MDLAB_1Final Result Performing OrganizationAddressCity/State/ZIP CodePhone Number [facility] CLIA: [id number] [place] [phone] * (ABNORMAL) Lipid Panel & Direct LDL (if Needed) (01/03/2025 7:47 AM CDT) ComponentValueRef RangeTest MethodAnalysis TimePerformed AtPathologist SvwbwzthcVvpicxkczjo525(H)0 - 199 mg/dL01/03/2025 10:[address] [facility] ATAWZABWPUBeyeorcnqbig611(H)<=149 mg/dL01/03/2025 10:[address] [facility] [address] LABORATORYHDL Bjnhsnslrpr26>=40 mg/dL01/03/2025 10:[address] [facility] LABORATORYLDL, Hnypfjifaj721(H)<130 mg/dL01/03/2025 10:[address] [facility] [address] LABORATORYNon HDL Chol, Xqjyklpsvk483(H)<=159 mg/dL01/03/2025 10:57 AM CDT [facility]ORYCholesterol/HDL Ratio5.0<=5.010 10:57 AM CDT [facility]ORATORYHours Fasting1.08 - 12 Hours01/03/2025 10:57 AM CDT [facility] [facility]YSpecimen (Source)Anatomical Location / Laterality Collection Method / VolumeCollection TimeReceived TimeBloodVenipuncture / Mpucmqc7201/03/2025 7:47 AM CDT1 7:47 AM CDT Narrative Authorizing ProviderResult TypeResult StatusTresa Diaz NAY, CNPLAB_1Final ResultPerforming OrganizationAddressCity/State/ZIP CodePhone Number [facility] CLIA: [id number] [place] [address], [facility] CLIA: [id number] [phone] [place] [address] * Hgb A1C (01/03/2025 7:47 AM CDT)ComponentValueRef RangeTest MethodAnalysis TimePerformed AtPathologist SignatureHemoglobin A1C4.2<=5.6 %01/03/2025 2:13 PM CDSOUTH [facility] LABORATORYEstimated Average Glucose (Calc)74< 117 mg/dL01/03/2025 2:13 PM [facility] LABORATORYComment:Estimated average glucose (eAG) converts A1c into glucose units (mg/dL) and estimates average glucose over the past approximately 3 months. The eAG reference interval (<117 mg/dL) corresponds to an A1c of <5.7%.Specimen (Source) Anatomical Location / LateralityCollection Method / VolumeCollection Time Received TimeBloodVenipuncture / Lbnpnlw5401/03/2025 7:47 AM CDT1 7:47 AM CDT Narrative Authorizing ProviderResult TypeResult StatusTresa Diaz NAY, CNPLAB_1Final ResultPerforming OrganizationAddressCity/State/ZIP CodePhone Number [facility] CLIA: [id number] [id number] [place] [address] * MM Mammogram Screening Bilat W 3D Calvin W CAD (11/10/2023 8:20 AM CDT) Anatomical RegionLateralityModalityBreastBilateralMammographySpecimen (Source) Anatomical Location / LateralityCollection Method / VolumeCollection Time Received Time Impressions 11/10/2023 9:10 AM CDT : ACR [...] W 3D Calvin W CAD and 11/20/2018 YMM Mammogram Diag Bilat W 3D Calvin ?? FINDINGS: Bilateral screening mammogram was performed with the assistance of Computer-Aided Detection and breast tomosynthesis. There are scattered areas of fibroglandular density. There is no radiographic evidence of malignancy. ?? Authorizing ProviderResult TypeResult StatusLaya HITCHCOCK MAMFinal Result * PAP Test (04/06/2022 2:41 PM LOCOMOTIVE FIRER)ComponentValueRef RangeTest MethodAnalysis TimePerformed AtPathologist SignatureCase ReportPap ? Case: [id number] ? Authorizing Provider: ??Shannan Moreau MD ??Collected: ? 04/06/2022 1441 ? Ordering Location: ? [facility] ? Received: ?04/06/2022 1516 ? Services-BUFFERER ? First Screen: ?Karla Earl CT (ASCP) ? Specimen: ?Pap Test, Routine, Cervix/Endocervix ? 04/23/2022 11:02 AM CSTMETHODIST LABORATORYPap Specimen AdequacySatisfactory for evaluation, endocervical/transformation zone component present.04/23/2022 11:02 AM CSTMETHODIST LABORATORYPap Interpretation(NILM) Negative for intraepithelial lesion or malignancy.04/23/2022 11:02 AM CSTMETHODIST LABORATORY at 1102 CSTPa DisclaimerThe Pap test is a screening test designed to aid in the detection of cervical cancer and its precursor lesions. It is not a diagnostic procedure and should not be used as the sole means of detecting cervical cancer. Both false-positive and false- negative results may occur.04/23/2022 11:02 AM CSTMETHODIST LABORATORYGross DescriptionThe specimen is received in SurePath fixative and properly labeled. 1 Pap-stained SurePath slide isprepared.04/23/2022 11:02 AM CSTMETHODIST LABORATORYEmbedded Xtrflt7604/23/2022 11:02 AM CSTMETHODIST LABORATORYSpecimen (Source)Anatomical Location / LateralityCollection Method / VolumeCollection TimeReceived TimeOther Specimen TypeENTIRE ENDOCERVIX / Ezostqk1704/06/2022 2:41 PM CST04/06/2022 3:16 PM CSTComment:LMP: No LMP recorded. Narrative Authorizing ProviderResult TypeResult StatusShannan MORALES PATHOLOGY Final ResultPerforming OrganizationAddressCity/State/ZIP CodePhone Number [phone] [place] [address] * HIV 1/2 Ag/Ab 4th Generation (07/29/2017 8:26 AM CDT)ComponentValueRef Range Test MethodAnalysis TimePerformed AtPathologist SignatureHIV-1 p24 Ag and HIV-1/HIV-2 AbNonreactiveNonreactivePN SOFTSpecimen (Source)Anatomical Location / LateralityCollection Method / VolumeCollection TimeReceived Time 07/29/2017 8:26 AM CDT07/29/2017 12:14 PM CDT Narrative [facility] - 07/29/2017 1:17 [place] [address] CLIA number [id number] Authorizing ProviderResult TypeResult StatusSybil Merrill MDLAB_1Final ResultPerforming OrganizationAddressCity/State/ZIP CodePhone Number [address] [address] * Hepatitis C Virus Tyra In-House (07/29/2017 8:26 AM CDT)ComponentValueRef Range Test MethodAnalysis TimePerformed AtPathologist SignatureHepatitis C Antibody NonreactiveNonreactivePN SOFTSpecimen (Source)Anatomical Location / Laterality Collection Method / VolumeCollection TimeReceived Time07/29/2017 8:26 AM CDT 07/29/2017 12:14 PM CDT Narrative [facility] - 07/29/2017 1:17 PM CDT Performed at [address] [address] CLIA number [id number] Authorizing ProviderResult TypeResult StatusSybil MORALES_1Final ResultPerforming OrganizationAddressCity/State/ZIP CodePhone Number [address] [address] from Last 3 Months or Most Recently Relevant to Health Maintenance Insurance * Guarantor: Vinita Solis TypeRelation to PatientDate of BirthPhone Billing AddressPersonal/QukzuwGwrc97/28/1981 [address] [place] [address] Care Teams Team MemberRelationshipSpecialtyStart DateEnd Date Tresa Diaz, [employer], PARTS CONTROL CLERK [address] [place] [address] PCP - GeneralNurse Practitioner05/18/24
--- NOTE | 2025-03-06 08:36 | ED.GENADULT ---
HPI - General Adult General Date Seen: 03/06/25 Chief complaint: Flank Pain Stated complaint: possible UTI Time Seen by Provider: 03/06/25 08:36 Source: patient and RN notes reviewed Mode of arrival: ambulatory Limitations: no limitations History of Present Illness HPI narrative: Vinita is a very pleasant 44-year-old female with history of frequent UTI no known resistance patterns according to patient who comes to the emergency room for evaluation of dysuria bladder pain and right flank pain associated with significant nausea. Patient notes the onset of some bladder symptoms on TuesdayMarch 04 that went away with good hydration. Unfortunately last night the bladder pain dysuria returned along with some right flank pain. Today the flank pain is much worse. Patient did take a Zofran earlier this morning which helped nausea only transiently. She has not had any vomiting she has not experienced any high fevers but does note temperature up to 100 a few days ago that went away. She has continued urinary frequency. Denies history of kidney stones. Related Data Home Medications ?Medication ?Instructions ?Recorded ?Confirmed albuterol sulfate 90 mcg/actuation g inhalation 01/11/22 01/11/22 aerosol inhaler clonazepam 0.5 mg tablet 0.5 mg PO PRN 01/11/22 01/11/22 doxycycline hyclate 100 mg capsule 100 mg PO BID 01/11/22 01/11/22 escitalopram oxalate 5 mg tablet 5 mg PO QDAY 01/11/22 01/15/25 (Lexapro) guaifenesin 1,200 mg tablet, 1,200 mg PO BID 01/11/22 01/11/22 extended release 12 hr (Mucinex) lamotrigine 100 mg tablet 200 mg PO BID 01/11/22 01/15/25 lisdexamfetamine 40 mg capsule 40 mg PO QAM 01/11/22 01/15/25 (Vyvanse) norgestrel 0.3 mg-ethinyl 1 tab PO QDAY 01/11/22 01/11/22 estradiol 30 mcg tablet (Low-Ogestrel (28)) prednisone 20 mg tablet 40 mg PO QDAY 01/11/22 01/11/22 quetiapine 25 mg tablet (Seroquel) 25 mg PO QDAY 01/11/22 01/15/25 topiramate 100 mg tablet 150 mg PO BID 01/11/22 01/15/25 trazodone 150 mg tablet 150 mg PO QDAY 01/11/22 01/15/25 escitalopram oxalate 10 mg tablet 10 mg PO DAILY 01/15/25 01/15/25 valacyclovir 1 gram tablet 1,000 mg PO DAILY 01/15/25 01/15/25 Previous Rx's ?Medication ?Instructions ?Recorded fluticasone 500 mcg-salmeterol 50 1 inh inhalation BID #60 ea 01/11/22 mcg/dose blistr powdr for inhalation (Advair Diskus) ondansetron 4 mg disintegrating 4 mg PO Q6H #20 tabs 01/15/25 tablet sulfamethoxazole 800 1 tab PO BID #14 tabs 01/15/25 mg-trimethoprim 160 mg tablet (Bactrim DS) cefpodoxime 200 mg tablet 200 mg PO BID #14 tabs 03/06/25 Allergies Allergy/AdvReac Type Severity Reaction Status Date / Time No Known Drug Allergies Allergy Verified 03/06/25 08:29 Review of Systems Status of ROS: Reports: 10 or more systems reviewed and unremarkable except as noted in History and below Const: Reports: fever; Denies: chills ENMT: Denies: nasal congestion Cardio: Denies: chest pain or shortness of breath with exertion Resp: Denies: shortness of breath or cough GI: Reports: abdominal pain and nausea; Denies: vomiting or diarrhea : Reports: painful urination, urinary frequency and urinary urgency; Denies: blood in urine Musculo: Reports: back pain; Denies: extremity pain Integ/Breast: Denies: rash Neuro: Denies: headache Psych: Denies: anxiety PFSH PFS Medical History Severe persistent asthma ?J45.50 - Severe persistent asthma, uncomplicated (ICD-10) Social History Smoking Status: Never smoker Do you use any of these nicotine containing products: None How often do you have a drink containing alcohol: never AUDIT-C Alcohol total score: 0 Non-prescribed substance use: denies use service: No Exam Narrative: Exam Narrative: Alert and oriented. External ears eyes nose clear. Heart with regular rate and rhythm and lungs are clear. Positive CVA tenderness on the right. Abdomen shows tenderness in the suprapubic area no masses. Lower extremities without edema. Ambulating without difficulty. Const: Vital Signs, click to edit/add: Vital Signs - 24 hr 03/06/25 08:21 Temperature 99 F Pulse Rate [Right Pulse Oximeter] 92 Respiratory Rate 18 Blood Pressure [Ri ght Upper Arm] 110/78 Pulse Oximetry 100 Oxygen Delivery Me thod Room Air Documenting provider has reviewed patient's vital signs: yes Course Course ED Course: Differential diagnosis includes but is not limited UTI, pyelonephritis, ureteral colic with kidney stone. Patient does not have a history of kidney stones and her symptoms do strongly suggest UTI as she has urinary frequency that is more often associated with infection rather than hematuria from stone. We are collecting a urine sample at this time. Given the fact that symptoms actually started greater than 48 hours ago will also obtain blood culture, CBC, basic panel. I will give patient dose of Rocephin IV and 1 L of saline while awaiting the remainder of the labs. I have also ordered blood cultures due to delay in UTI treatment. Reevaluation(s) Reevaluation #1: Patient noted to be feeling better after some fluids and Toradol. She is currently receiving Rocephin. Delay in treatment from need to obtain blood cultures due to symptoms starting greater than 48 hours ago. Vital Signs Vital signs: Initial Vital Signs Temperature 99 F 03/06/25 08:21 Temperature Source Temporal Artery Scan 03/06/25 08:21 Pulse Rate 92 03/06/25 08:21 Pulse Rhythm Regular 03/06/25 08:21 Pulse Strength 3+ Normal 03/06/25 08:21 Respiratory Rate 18 03/06/25 08:21 Blood Pressure 110/78 03/06/25 08:21 Blood Pressure Mean 88 03/06/25 08:21 Blood Pressure Position Sitting 03/06/25 08:21 Pulse Oximetry 100 03/06/25 08:21 Oxygen Delivery Method Room Air 03/06/25 08:21 Vital Signs Temperature 99 F 03/06/25 08:21 Pulse Rate 92 03/06/25 08:21 Respiratory Rate 18 03/06/25 08:21 Blood Pressure 110/78 03/06/25 08:21 Pulse Oximetry 100 03/06/25 08:21 Oxygen Delivery Method Room Air 03/06/25 08:21 Temperature 99 F 03/06/25 08:21 Pulse Rate 92 03/06/25 08:21 Respiratory Rate 18 03/06/25 08:21 Blood Pressure 110/78 03/06/25 08:21 Pulse Oximetry 100 03/06/25 08:21 Oxygen Delivery Method Room Air 03/06/25 08:21 Medications Administered Medications: Generic Name Dose Route Start Last Admin Trade Name Freq PRN Reason Stop Dose Admin Sodium Chloride 1,000 mls @ 1,000 mls/hr 03/06/25 10:14 03/06/25 10:17 0.9 % Sodium Chloride 1000 Ml IV 03/06/25 11:13 1,000 mls/hr .Q1H KIM Administration Discontinued Medications Generic Name Dose Route Start Last Admin Trade Name Freq PRN Reason Stop Dose Admin Ceftriaxone Sodium 1 gm/ 100 mls @ 200 mls/hr 03/06/25 09:20 03/06/25 09:51 Sodium Chloride IVPB 03/06/25 09:49 200 mls/hr ONCE ONE Administration Ketorolac Tromethamine 15 mg 03/06/25 08:38 03/06/25 09:50 Ketorolac 15 Mg/Ml Inj IVP 03/06/25 08:39 15 mg ONCE ONE Administration Ondansetron HCl 4 mg 03/06/25 08:38 03/06/25 09:50 Ondansetron 2 Mg/Ml Inj IVP 03/06/25 08:39 4 mg ONCE ONE Administration Medical Decision Making MDM Narrative Medical decision making narrative: 1. Complicated UTI-suspect early pyelonephritis with flank pain that started last evening. Fortunately blood work is reassuring with negative CRP and normal white count. No evidence of sepsis at this time. Positive urinalysis. Looking back she had pansensitive E coli on previous urine culture. Have treated with 1 g of IV Rocephin in the ED and patient will be placed on cefpodoxime 200 mg b.i.d. x7 days. Patient has had recurrent UTI, has been taking cranberry tablets, pushing fluids. Suggest follow-up with urology for further evaluation when she is feeling better. 2. Flank and urinary pain -improved with Toradol. Continue Tylenol or ibuprofen as needed. 3. Disposition-home at this time. Patient notes that she still has some mild nausea but has not had any vomiting here. This should improve as the antibiotics start working. However, for persistent vomiting, worsening fever, worsening pain or other symptoms return to the ER for further evaluation. Note at this time based on evaluation, history and current symptoms I did not feel the need for imaging. However, should she return I would consider renal ultrasound versus CT. At this time I do not suspect obstruction or stone. Medical Records Medical records reviewed: Yes I reviewed the patient's medical records Medical records narrative: Review of most recent urine culture from 01/15/2025 shows a pansensitive E coli. Lab Data Lab results reviewed: Yes I reviewed the patient's lab results Labs: Lab Results 03/06/25 03/06/25 Range/Units 08:30 09:40 WBC 7.30 (4.50-11.00) K/uL RBC 4.24 (4.00-5.20) m/uL Hgb 13.8 (12.0-16.0) gm/dL Hct 39.9 (33.0-51.0) % MCV 94 (80-100) fL MCH 33 (26-34) pg MCHC 35 (32-36) gm/dL RDW Coeff of Jeremy 12.1 (11.5-15.5) % Plt Count 186 (140-440) K/uL Neut % (Auto) 73.1 H (42.0-72.0) % Lymph % (Auto) 20.3 (20-44) % Valley % (Auto) 4.8 (0.0-11.0) % Eos % (Auto) 1.0 (0.0-7.0) % Baso % (Auto) 0.5 (0.0-3.0) % Neut # (Auto) 5.30 (1.7-7.0) K/uL Lymph # (Auto) 1.48 (0.90-2.90) K/uL Valley # (Auto) 0.40 (0.00-0.90) K/UL Eos # (Auto) 0.07 (0.00-0.50) K/uL Baso # (Auto) 0.04 (0.00-0.30) K/uL Abs Immat Gran (auto) 0.02 (0.00-0.30) K/uL Imm/Tot Granulo (auto) 0.3 % Sodium 136 (135-149) mmol/L Potassium 3.4 L (3.6-5.1) mmol/L Chloride 108 (96-114) mmol/L Carbon Dioxide 20 (20-32) mmol/L Anion Gap 8 (7-15) mEq/L BUN 13 (5-24) mg/dL Creatinine 0.8 (0.5-1.5) mg/dL Estimated GFR 94 ml/min Glucose 89 (60-115) mg/dL Calcium 8.9 (8.4-10.6) mg/dL C-Reactive Protein < 0.5 L (0.5-1.0) mg/dL Urine Color Brown A (Yellow) Urine Appearance Cloudy A (Clear) Urine pH 5.5 (5.0-8.5) Ur Specific [place] >= 1.030 (1.000-1.030) Urine Protein 3+ A (Negative) Urine Glucose (UA) Negative (Negative) Urine Ketones Negative (Negative) Urine Blood 3+ A (Negative) Urine Nitrite Negative (Negative) Urine Bilirubin 1+ A (Negative) Urine Urobilinogen 0.2 (0.2-1.0) Ur Leukocyte Esterase Trace A (Negative) Urine RBC 50-100 A (0-2) Urine WBC 2-5 (0-5) Ur Squamous Epith Cells None (None-Few) Urine Bacteria Few A (None) Discharge Plan Discharge Clinical Impression: Complicated urinary tract infection Patient Disposition: Home, Self-Care Condition: Improved Additional Instructions: Start antibiotic this evening and continue for 7 days. Push fluids. Return for worsening symptoms especially fever, persistent vomiting, worsening pain. Prescriptions: New cefpodoxime 200 mg tablet 200 mg PO BID Qty: 14 0RF Rx Instructions: must administer with a meal/food No Action topiramate 100 mg tablet 150 mg PO BID Patient Comments: TAKE 1.5 TABLET(S) BY ORAL ROUTE 2 TIMES PER DAY FOR 90 DAYS doxycycline hyclate 100 mg capsule 100 mg PO BID Patient Comments: TAKE 1 CAPSULE BY MOUTH TWO TIMES A DAY. albuterol sulfate 90 mcg/actuation HFA aerosol inhaler inhalation clonazepam 0.5 mg tablet 0.5 mg PO PRN trazodone 150 mg tablet 150 mg PO QDAY Patient Comments: TAKE 1 TABLET(S) BY ORAL ROUTE , AT BEDTIME , FOR 90 DAYS lamotrigine 100 mg tablet 200 mg PO BID Low-Ogestrel (28) 0.3-30 mg-mcg tablet 1 tab PO QDAY Patient Comments: TAKE 1 TABLET BY MOUTH EVERY DAY prednisone 20 mg tablet 40 mg PO QDAY Vyvanse 40 mg capsule 40 mg PO QAM quetiapine [Seroquel] 25 mg tablet 25 mg PO QDAY escitalopram oxalate [Lexapro] 5 mg tablet 5 mg PO QDAY Mucinex 1,200 mg tablet extended release 12hr 1,200 mg PO BID fluticasone propion-salmeterol [Advair Diskus] 500-50 mcg/dose blister with device 1 inh inhalation BID Qty: 60 1RF valacyclovir 1 gram tablet 1,000 mg PO DAILY escitalopram oxalate 10 mg tablet 10 mg PO DAILY ondansetron 4 mg tablet,disintegrating 4 mg PO Q6H Qty: 20 0RF sulfamethoxazole-trimethoprim [Bactrim DS] 800-160 mg tablet 1 tab PO BID Qty: 14 0RF Follow Up/Referrals: Tresa Diaz FRANCHISE SALES MANAGER [Primary Care Provider, Family Practice] [facility]
[2025-03-06 08:40] LABS: Appearance Urine Cloudy (Clear)
[2025-03-06 09:50] LABS: Hematocrit* 39.9 % (33.0-51.0); Hemoglobin* 13.8 gm/dL (12.0-16.0); Immature Granulocytes Abs Auto 0.02 K/uL (0.00-0.30); Immature Granulocytes Pct Auto 0.3 %; Lymphocytes Absolute Auto 1.48 K/uL (0.90-2.90); Mean Corpuscular HGB Conc 35 gm/dL (32-36); Mean Corpuscular Hemoglobin 33 pg (26-34); Mean Corpuscular Volume 94 fL (80-100); RDW Coefficient of Variation % 12.1 % (11.5-15.5); Red Blood Count* 4.24 m/uL (4.00-5.20); White Blood Count* 7.30 K/uL (4.50-11.00)
[2025-03-06] MEDS: ONDANSETRON 2 MG/ML inj 4 MG IVP (09:50)
[2025-03-06] MEDS: cefTRIAXone 1 GM in 0.9 % SODIUM CHLORIDE Mini-bag 100 ML IVPB (09:51)
[2025-03-06 09:56] LABS: Slide Review Reflex No
[2025-03-06 10:02] LABS: Chloride* 108 mmol/L (96-114); Potassium* 3.4 mmol/L (3.6-5.1); Sodium* 136 mmol/L (135-149)
[2025-03-06 10:05] LABS: Anion Gap 8 mEq/L (7-15); Blood Urea Nitrogen* 13 mg/dL (5-24); Calcium* 8.9 mg/dL (8.4-10.6); Carbon Dioxide* 20 mmol/L (20-32); Creatinine* 0.8 mg/dL (0.5-1.5); Estimated Glomerular Filt Rate 94 ml/min; Glucose* 89 mg/dL (60-115)
[2025-03-06 10:30] VITALS: BP 112/65; PULSE 60; RESP 16; O2SAT 100
== END 2025-03-06 11:07 | disposition home or self-care (01) ==
PROVIDERS: Emergency Provider Family Medicine; PCP Registered Nurse
DX: N39.0 Urinary tract infection, site not specified (principal); B96.89 Other specified bacterial agents as the cause of diseases classified elsewhere; R31.9 Hematuria, unspecified; R80.9 Proteinuria, unspecified; R10.A1 Flank pain, right side
CPT/HCPCS: 36415; 80048; 81001; 85025; 86140; 87040; 87086; 99284; J0696; J1885; J2405; J7030